=== PATIENT | male | born 1955 | race African-American/Black ===

== ENCOUNTER 2016-09-27 15:38 | Inpatient (IN) | payer MEDICARE, OTHER ==
[~2016-09-27] VITALS: Ht 188 cm; Wt 93.6 kg
[~2016-09-27 15:38] MED LIST: ATOR40TA68 PO; COMBIG5 BOTH EYES; DOXY-220 PO; DULA1.5P SQ; DUTA0.5C PO; FURO40TA4 PO; HYDR-3672 PO; LEVE10006 PO; LOTE5DRO3 BOTH EYES; NASO17 NASAL; NIFE60TA11 PO
[2016-09-27 16:18] LABS: ADD SCAN DIFF NO
[2016-09-27 16:20] LABS: BASOPHILS % 0.5 % (0.0-2.0); EOSINOPHILS # 0.2 10^3/ul (0.0-0.5); EOSINOPHILS % 2.4 % (0.0-7.0); HEMATOCRIT 25.7 % (42.0-52.0); HEMOGLOBIN 8.4 g/dl (14.0-18.0); LYMPHOCYTES # 2.2 10^3/ul (0.8-2.9); LYMPHOCYTES % 27.1 % (15.0-51.0); MEAN CORPUSCULAR HGB CONC 32.7 g/dl (32.0-37.0); MEAN CORPUSCULAR VOLUME 85.7 fl (82.0-101.0); MEAN PLATELET VOLUME 10.8 fl (7.4-10.4); MONOCYTE # 0.8 10^3/ul (0.3-0.9); MONOCYTES % 9.3 % (0.0-11.0); NEUTROPHILS % 60.1 % (39.0-77.0); PLATELET COUNT 274 10^3/UL (140-415); WHITE BLOOD COUNT 8.3 10^3/ul (4.8-10.8)
[2016-09-27 16:34] LABS: CHLORIDE 104 mmol/L (97-110)
[2016-09-27 16:35] LABS: POTASSIUM 4.2 mmol/L (3.5-5.1); SODIUM 141 mmol/L (135-144)
[2016-09-27 16:37] LABS: CREATININE 10.21 mg/dl (0.61-1.24)
[2016-09-27 16:38] LABS: ANION GAP 19 (8-16); BLOOD UREA NITROGEN 88 mg/dl (7-20); CALCIUM 6.5 mg/dl (8.4-10.2); CARBON DIOXIDE 22 mmol/L (21-31); GLUCOSE 107 mg/dl (70-220)
[2016-09-27 16:47] LABS: B-TYPE NATRIURETIC PEPTIDE 3020 PG/ML (0-125)
[2016-09-27 16:54] LABS: TROPONIN-I < 0.012 ng/ml (0.00-0.12)
[2016-09-27] MEDS ORDERED: METO25TA7 PO (17:12)
--- NOTE | 2016-09-27 17:59 | RADRPT ---
PROCEDURE: XR Chest 1 View. CLINICAL INDICATION: Chest pain TECHNIQUE: AP view of the chest was obtained. COMPARISON: May 09, 2016 FINDINGS: The cardiomediastinal silhouette is within normal limits. Subsegmental atelectasis is noted in the b ilateral lower lobes. No consolidations are identified. No pneumothorax is seen. Osseous structure s are intact. IMPRESSION: Subsegmental atelectasis in the bilateral lower lobes. RPTAT: AA .Chris Craven MD, Date Time Electronically viewed and signed by .Chris Craven MD, on 09/27/2016 17:58 .P/
[2016-09-27] MEDS ORDERED: SOD CHLORIDE 0.9% 1,000 ML IV ONE (19:00)
[2016-09-27] MEDS ORDERED: FUROSEMIDE 40 MG INJ IV ONE (20:30)
[2016-09-27] MEDS ORDERED: ACETAMINOPHEN 325 MG TAB PO PRN (20:30)
[2016-09-27] MEDS ORDERED: ONDANSETRON 4 MG INJ IV PRN (20:30)
[2016-09-27] MEDS ORDERED: LABETALOL HCL 20MG INJ IV ONE ×2 (21:00→23:30)
[2016-09-28] VITALS (14 sets, daily range): BP systolic 106–186; BP diastolic 67–110; PULSE 62–84; RESP 18–20; Ht 188 cm; Wt 93.6 kg
--- NOTE | 2016-09-28 00:55 | ERA ---
ER Documentation Chief Complaint Date/Time DATE: 09/28/16 TIME: 00:50 Chief Complaint pt mark anthony from home c/o bi-lateral leg swelling x 6 days, denies pain HPI This 60-year-old male presented emergency room for bilateral leg swelling 6 days. Also states it is feeling a little woozy. Denies any headache or focal neurological deficits. States that his primary care doctor Pato, called him last week and told that his creatinine is elevated he should go into a hospital. He waited till today. Denies any abdominal pain. Denies fever chills. ROS All systems reviewed and are negative except as per history of present illness. Medications Home Meds Active Scripts Furosemide (Lasix) 40 Mg Tab, 40 MG PO DAILY, #30 TAB Prov:JERSEY FARIAS. DO 03/27/16 Nifedipine (Nifedical Xl) 60 Mg Tab.er.24, 60 MG PO 1 by mouth 4 times a, #30 TAB Prov:JERSEY FARIAS. DO 03/27/16 Reported Medications Metoprolol Succinate* (Toprol XL*) 25 Mg Tab.sr.24h, 25 MG PO DAILY, #30 TAB 09/27/16 Atorvastatin* (Atorvastatin*) 40 Mg Tablet, 40 MG PO QHS, #30 TAB 03/27/16 Brimonidine/Timolol* (Combigan*) 5 Ml Drops, 1 DROP BOTH EYES BID, BOTTLE 03/27/16 Doxycycline Monohydrate* (Doxycycline Monohydrate*) 100 Mg Tablet, 100 MG PO DAILY, TAB 03/27/16 Discontinued Reported Medications Mometasone Furoate* (Nasonex*) 50 Mcg/[place]aver[place] - 17 Gm [place].pump, 1 SPRAY NASAL BID, #1 BOTTLE IN EACH NOSTRIL 03/27/16 Dutasteride* (Avodart*) 0.5 Mg Capsule, 0.5 MG PO DAILY, CAP 03/27/16 Dulaglutide (Trulicity) 1.5 Mg/0.5 Ml Pen.injctr, 1.5 MG SQ 03/27/16 Loteprednol Etabonate* (Lotemax*) 5 Ml Drops.susp, 1 DROP BOTH EYES QID, EA 03/27/16 Levetiracetam* (Levetiracetam*) 1,000 Mg Tablet, 1000 MG PO 02/25/13 Discontinued Scripts Hydralazine Hcl* (Hydralazine Hcl*) 50 Mg Tab, 50 MG PO TID, #90 TAB Prov:JERSEY FARIAS DO 03/27/16 Allergies Allergies: Coded Allergies: No Known Allergies (Verified Allergy, Mild, 09/27/16) PMhx/Soc History of Surgery: No Anesthesia Reaction: No Hx Neurological Disorder: No Hx Respiratory Disorders: No Hx Cardiac Disorders: Yes (htn) Hx Psychiatric Problems: No Hx Miscellaneous Medical Probl: No Hx Alcohol Use: No Hx Substance Use: No Hx Tobacco Use: No Smoking Status: Former smoker Physical Exam Vitals Vital Signs Date Time Temp Pulse Resp B/P Pulse Ox O2 Delivery O2 Flow Rate FiO2 09/27/16 20:00 86 18 189/115 100 Room Air 09/27/16 18:59 80 16 161/106 99 Room Air 09/27/16 15:50 98.6 76 16 120/80 100 Physical Exam Const: [] No acute distress Head: Atraumatic Eyes: Normal Conjunctiva ENT: Normal External Ears, Nose and Mouth. Neck: Full range of motion..~ No meningismus. Resp: Clear to auscultation bilaterally Cardio: Regular rate and rhythm, no murmurs Abd: Soft, non tender, non distended. Normal bowel sounds Skin: No petechiae or rashes Back: No midline or flank tenderness Ext: No cyanosis, bilateral 2+ pitting tibial edema. The pulses intact all 4 extremities Neur: Awake and alert Psych: Normal Mood and Affect Result Diagram: 09/27/16 1600 09/27/16 1600 Results 24 hrs Laboratory Tests Test 09/27/16 16:00 White Blood Count 8.310^3/ul Red Blood Count 3.0010^6/ul Hemoglobin 8.4g/dl Hematocrit 25.7% Mean Corpuscular Volume 85.7fl Mean Corpuscular Hemoglobin 28.0pg Mean Corpuscular Hemoglobin Concent 32.7g/dl Red Cell Distribution Width 14.0% Platelet Count 25233^3/UL Mean Platelet Volume 10.8fl Neutrophils % 60.1% Lymphocytes % 27.1% Monocytes % 9.3% Eosinophils % 2.4% Basophils % 0.5% Nucleated Red Blood Cells % 0.0/100WBC Neutrophils # 5.010^3/ul Lymphocytes # 2.210^3/ul Monocytes # 0.810^3/ul Eosinophils # 0.210^3/ul Basophils # 0.010^3/ul Nucleated Red Blood Cells # 0.010^3/ul Sodium Level 141mmol/L Potassium Level 4.2mmol/L Chloride Level 104mmol/L Carbon Dioxide Level 22mmol/L Anion Gap 19 Blood Urea Nitrogen 88mg/dl Creatinine 10.21mg/dl Glucose Level 107mg/dl Calcium Level 6.5mg/dl Troponin I < 0.012ng/ml B-Type Natriuretic Peptide 3020PG/ML Current Medications Medications (Trade) Dose Ordered Sig/Florencia Route PRN Reason Start Time Stop Time Status Last Admin Dose Admin Sodium Chloride (NS) 1,000 ml @ 1,000 mls/hr Q1H ONCE IV 09/27/16 19:00 09/27/16 19:59 DC 09/27/16 18:52 Procedures/MDM Patient with a significantly increasing renal failure. She is not on dialysis yet but has labs consistent with needing dialysis. His high BUN of 88 indicating uremia explains his slightly woozy feeling that he could not quite described. Spoke with Dr. Angela Claudio who will be admitting the patient. Marian spoke with the partner of Dr. Casey Ho will be seeing the patient for nephrology. Review the patient's record on his previous admission for renal failure he had seen Dr. Casey. No need for emergent dialysis right now. They give the patient a liter of normal saline to help with his kidney function. Did not want to give her Lasix right now for his leg swelling. Patient also has normocytic anemia without any history of GI bleeding currently. Likely secondary to decreased erythropoietin secondary to kidney failure. Had an increased BNP of 3000 indicating probable fluid overload secondary to the kidneys. No chest pain and no ischemic changes on his EKG. EKG interpretation: Sinus origin of rhythm with normal axis, no significantly prolonged QT interval, no ST or T-wave changes concerning for acute ischemia. 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
[2016-09-28] MEDS ORDERED: ACETAMINOPHEN 500 MG TAB PO PRN (01:00)
--- NOTE | 2016-09-28 05:10 | CONS ---
DATE OF ADMISSION: 09/27/2016 DATE OF CONSULTATION: 09/27/2016 NEPHROLOGY CONSULTATION PRIMARY PHYSICIAN: Dr. Whyte REASON FOR CONSULTATION: Progression of chronic kidney disease. HISTORY OF PRESENT ILLNESS: This is a 60-year-old gentleman with a known history of hypertension an d hyperlipidemia who, from old records, states that as well he has a longstanding history of diabete s mellitus (the patient currently denies any history of diabetes) who has had known chronic kidney d isease. He was admitted to [facility] in April of last year when he presented with bilateral lower extremity willis ma. At that time, on admission on 05/09/2016, creatinine was 5.73. Hemoglobin was 10.4, and urinal ysis disclosed 2+ protein with an otherwise bland sediment. A venous Doppler was negative for any DVT at that time, and renal ultrasound showed diffusely increa sed renal cortical echogenicity consistent with chronic kidney disease. There were no masses, calcu li, or evidence of any obstruction. There was no hydronephrosis. He was diuresed and discharged on 05/13/2016 with a serum creatinine of 5.4. He has since followed up with Dr. Whyte and apparently earlier this week had laboratories done w [facility] showed a creatinine of approximately 9. According to the patient, it was recommended that he be admitted, but he did not do so until he pres ented to the ER this evening complaining of generalized weakness and fatigue with progression of his lower extremity edema despite outpatient Lasix 40 mg a day. He denies any history of any cardiopulmonary disease, specifically denies any chest pain, angina, sy ncope, presyncope, or any palpitations. He denies any history of prior chest pain, MN, or TIA. He does have hypertension, and he admits to taking his medications religiously. Here in the emergency room, most recent blood pressure is 160/106, O2 saturation is 99% on room air, and he is comfortable lying in bed. LABORATORY: Notable for hemoglobin of 8.4, BUN of 88, and creatinine of 10.2 with a calcium of 6.5. PAST MEDICAL HISTORY: Please see full dictated problem list. ALLERGIES: NONE. HABITS: Tobacco: He currently denies. Alcohol: He currently denies; albeit from prior records, lobo jj apparently was an alcohol user years ago. MEDICATIONS: He takes include 1. Atorvastatin 40 mg a day. 2. Hydralazine 100 mg twice a day. 3. Lasix 40 mg a day. 4. Metoprolol 25 mg daily. REVIEW OF SYSTEMS: As per HPI. Otherwise unremarkable. PHYSICAL EXAMINATION: GENERAL: Awake and alert, pleasant gentleman, sitting in bed in no acute distress. VITAL SIGNS: He is afebrile, blood pressure 160/106, heart rate is 72 and regular, respirations are 12 and unlabored, O2 saturation is 99% on room air. SKIN: Warm, well perfused. HEAD: Normocephalic, atraumatic. EYES: Pupils appear round and reactive. Extraocular movements are intact. Sclerae are anicteric. 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 Lungs are clear to auscultation and percussion. NECK: JVP is not distended. There is no adenopathy. BACK: No CVAT. HEART: S1, S2, regular rate and rhythm. No murmurs, rubs, or gallops. ABDOMEN: Somewhat obese and soft, nontender, no organomegaly, no masses. EXTREMITIES: 1+ pitting edema bilaterally. Distal pulses are trace. LABORATORY DATA: White count 8.3, hemoglobin 8.4, hematocrit 25.7, platelet count 274,000. Sodium 141, potassium 4.2, chloride 104, bicarbonate 22, BUN 88, creatinine 10.21, glucose 107, calcium 6.5 . Troponin less than 0.012. Electrocardiogram shows normal sinus rhythm with some nonspecific ST-T wave changes. Chest x-ray: Normal size heart. No infiltrates or effusions. PROBLEM LIST: 1. Progressive chronic kidney disease, currently reaching end-stage, most likely due to combination of hypertensive nephrosclerosis and diabetic nephropathy (albeit the patient currently denies a his tory of diabetes.) 2. Hypertension, currently poorly controlled. 3. Lower extremity edema secondary to progressive kidney disease. 4. Anemia of chronic kidney disease, iron status unknown. 5. History of diabetes, currently diet controlled and off medication. 6. Prior history of bipolar disorder. 7. History of bilateral mastectomies due to gynecomastia from prior Risperdal treatment. 8. Hyperlipidemia, currently on atorvastatin. RECOMMENDATIONS: The nature of his progressive chronic kidney disease was discussed with the patien t and that his fatigue and lethargy is due to the combination of both kidney disease and the resulta nt anemia of chronic kidney disease. The issue of hemodialysis was discussed at length with the pat david at the bedside. He appears to understand but is not willing, at this point, to undergo acute d ialysis. The nature of creating AV fistula was explained to the patient, and he seemed open to that . RECOMMENDATIONS: 1. Admit to hospital. 2. Obtain iron stores and begin on Procrit. 3. Vascular surgery consultation. We will discuss with Dr. Whyte. 4. Followup labs in the morning. 5. Careful diuresis. 6. Obtain renal ultrasound for completeness, albeit I doubt he is obstructed. 7. Further recommendations pending response to above. Dictated By: BRIAN STVEENSON MD, MM/MONTSERRAT Conf#: [id number] DID#: [id number]
[2016-09-28 08:52] LABS: ADD UMIC YES; URINE BILIRUBIN (Dip) NEGATIVE (NEGATIVE); URINE BLOOD (Dip) 1+ (NEGATIVE); URINE COLOR LT. YELLOW (YELLOW); URINE KETONES (Dip) NEGATIVE (NEGATIVE); URINE LEUKOCYTE ESTERASE (Dip) NEGATIVE (NEGATIVE); URINE NITRITE (Dip) NEGATIVE (NEGATIVE); URINE TOTAL PROTEIN (Dip) 2+ (NEGATIVE); URINE UROBILINOGEN (Dip) 0.2 E.U./dL (0.1-1.0)
[2016-09-28] MEDS ORDERED: METOPROLOL 25 MG TAB PO SCH ×2 (09:00)
[2016-09-28] MEDS ORDERED: NIFEdipine 10 MG CAP PO SCH (09:00)
[2016-09-28 09:17] LABS: URINE RBCS 0-2 /HPF (0)
[2016-09-28] MEDS: NIFEdipine (XL) 60 MG TAB PO SCH (09:30)
--- NOTE | 2016-09-28 09:53 | CONS ---
Date/Time of Note Date/Time of Note DATE: 09/28/16 TIME: 09:49 Assessment/Plan Assessment/Plan Problems: (1) CKD stage 5 secondary to hypertension Comment: discussed.. he agreeable to start HD... will need to discuss w Dr Whyte on choice of Vascular Surgeon for placement of Permacath, and creation of AVF (2) HTN (hypertension) Comment: will increase meds now (3) Anemia in chronic kidney disease Comment: Fe studies pd.. will start EPO (4) Cardiomyopathy Comment: Echo ordered... currently pd Consultation Date/Type/Reason Admit Date/Time Sep 27, 2016 at 20:14 Initial Consult Date Type of Consultation: neph 24 HR Interval Summary Free Text/Dictation feels OK... thought about our discussion last night, and is now agreeable to starting dialysis... currently no cp or sob...again reviewed anemia, etc Exam/Review of Systems Vital Signs Vitals Vital Signs Date Time Temp Pulse Resp B/P Pulse Ox O2 Delivery O2 Flow Rate FiO2 09/28/16 08:21 98.2 78 18 171/95 99 09/28/16 00:04 Room Air Intake and Output 09/27/16 09/27/16 09/28/16 15:00 23:00 07:00 Intake Total 400 ml Balance 400 ml Exam Constitutional: alert Psych: no complaints Eyes: nl conjunctiva Neck: supple Respiratory: clear to auscultation Cardiovascular: regular rate and rhythm Gastrointestinal: soft Extremities: edema (1+) Results Result Diagram: 09/27/16 1600 09/27/16 1600 Results 24 hrs Laboratory Tests Test 09/27/16 16:00 09/28/16 05:00 White Blood Count 8.3 Red Blood Count 3.00 #L Hemoglobin 8.4 #L Hematocrit 25.7 L Mean Corpuscular Volume 85.7 Mean Corpuscular Hemoglobin 28.0 L Mean Corpuscular Hemoglobin Concent 32.7 Red Cell Distribution Width 14.0 Platelet Count 274 Mean Platelet Volume 10.8 #H Neutrophils % 60.1 Lymphocytes % 27.1 Monocytes % 9.3 Eosinophils % 2.4 Basophils % 0.5 Nucleated Red Blood Cells % 0.0 Neutrophils # 5.0 Lymphocytes # 2.2 Monocytes # 0.8 Eosinophils # 0.2 Basophils # 0.0 Nucleated Red Blood Cells # 0.0 Sodium Level 141 Potassium Level 4.2 Chloride Level 104 Carbon Dioxide Level 22 Anion Gap 19 H Blood Urea Nitrogen 88 H Creatinine 10.21 H Glucose Level 107 Calcium Level 6.5 L Troponin I < 0.012 B-Type Natriuretic Peptide 3020 H Urine Color LT. YELLOW Urine Clarity CLEAR Urine pH 7.0 Urine Specific [place] 1.020 Urine Ketones NEGATIVE Urine Nitrite NEGATIVE Urine Bilirubin NEGATIVE Urine Urobilinogen 0.2 E.U./dL Urine Leukocyte Esterase NEGATIVE Urine Microscopic RBC 0-2 Urine Microscopic WBC NONE SEEN Urine Hemoglobin 1+ H Urine Glucose 0.1% H Urine Total Protein 2+ H Medications Medications Current Medications Acetaminophen (Tylenol Tab) 500 mg Q6H PRN PO PAIN AND OR ELEVATED TEMP; Start 09/28/16 at 01:00 Clonidine (Catapres) 0.1 mg Q8 PRN PO ELEVATED BLOOD PRESSURE Last administered on 09/28/16 03:56; Admin Dose 0.1 MG; Start 09/28/16 at 01:00 Atorvastatin Calcium (Lipitor) 40 mg HS PO ; Start 09/28/16 at 21:00 Hydralazine HCl (Apresoline) 100 mg BID PO Last administered on 09/28/16 09:30 ; Admin Dose 100 MG; Start 09/28/16 at 09:00 Nifedipine (Procardia Xl) 60 mg DAILY PO Last administered on 09/28/16 09:30; Admin Dose 60 MG; Start 09/28/16 at 09:00 Metoprolol Tartrate (Lopressor) 50 mg DAILY PO ; Start 09/29/16 at 09:00; Status UNV BRIAN STEVENSON MD Sep 28, 2016 09:53
[2016-09-28 10:01] LABS: ADD SCAN DIFF NO
[2016-09-28 10:05] LABS: BASOPHILS % 0.4 % (0.0-2.0); EOSINOPHILS # 0.2 10^3/ul (0.0-0.5); EOSINOPHILS % 2.7 % (0.0-7.0); LYMPHOCYTES # 1.9 10^3/ul (0.8-2.9); LYMPHOCYTES % 27.5 % (15.0-51.0); MEAN CORPUSCULAR HEMOGLOBIN 27.2 pg (29.0-33.0); MEAN CORPUSCULAR HGB CONC 31.8 g/dl (32.0-37.0); MEAN CORPUSCULAR VOLUME 85.6 fl (82.0-101.0); MEAN PLATELET VOLUME 10.7 fl (7.4-10.4); MONOCYTE # 0.6 10^3/ul (0.3-0.9); MONOCYTES % 8.7 % (0.0-11.0); NEUTROPHIL # 4.1 10^3/ul (1.6-7.5); NEUTROPHILS % 60.4 % (39.0-77.0); PLATELET COUNT 221 10^3/UL (140-415); RED BLOOD COUNT 2.57 10^6/ul (4.70-6.10); RED CELL DISTRIBUTION WIDTH 14.1 % (11.5-14.5); WHITE BLOOD COUNT 6.8 10^3/ul (4.8-10.8)
[2016-09-28 10:18] LABS: ALBUMIN 2.7 g/dl (3.3-4.9); ALBUMIN/GLOBULIN RATIO 0.84; CREATININE 9.38 mg/dl (0.61-1.24); PHOSPHORUS 8.8 mg/dl (2.5-4.9); POTASSIUM 3.6 mmol/L (3.5-5.1); TOTAL PROTEIN 5.9 g/dl (6.1-8.1)
[2016-09-28] MEDS ORDERED: EPOETIN 10000 UNITS/ML (NON ESRD/NON ONCOLOGY) SC ONE (10:30)
--- NOTE | 2016-09-28 11:19 | RADRPT ---
Echocardiogram Report Patient Name: VICKY REYES Gender: Male Date: 1955 Study Date: 28-Sep-2016 Steersman: MATILDE Location: E Ref. Physician: BRIAN STEVENSON Quality: Adequate Procedures: Transthoracic echocardiogram with complete 2D, M-Mode, and Doppler examination. Indications: Shortness of breath. 2D/M Mode Doppler Measurement Value Normal Ranges Measurement Value Normal Ranges AoR Diam MM 3.4 cm AV Peak Ignacio 1.5 m/sec ACS MM 2.2 cm AV Peak PG 8.8 mmHg LVIDd 2D 4.9 3.5 - 5.6 cm LVOT Peak Ignacio 1.0 m/sec LVIDs 2D 3.1 2.1 - 4.1 cm LVOT Peak PG 3.8 mmHg LVPWd 2D 1.6 0.6 - 1.1 cm MV E Peak Ignacio 0.9 m/sec IVSd 2D 1.5 0.6 - 1.1 cm MV A Peak Ignacio 0.7 m/sec EDV 2D 111.2 cm3 MV E/A 1.2 ESV 2D 30.6 cm3 MV Decel Time 144 msec LA Dimen 2D 4.2 2.3 - 4.0 cm MV Decel [place] 6 MV E/A 1.2 TR Peak Ignacio 2.7 m/sec TR Peak PG 29.8 mmHg PV Peak Ignacio 1.1 m/sec PV Peak PG 4.0 mmHg RVSP 32.8 mmHg Findings Left Ventricle: Normal left ventricular systolic function. Normal left ventricular cavity size. Moderate concentric left ventricular hypertrophy. Ejection fraction is visually estimated at 65 %. Tissue Doppler/Mitral Doppler indices are consistent with impaired relaxation (Stage I diastolic dysfunction). E/E`=14. Right Ventricle: Normal right ventricular size. Normal right ventricular systolic function. Left Atrium: There is mild enlargement of left atrium. Right Atrium: The right atrium is normal in size. Atrial Septum: Normal atrial septum. Mitral Valve: Normal appearance of the mitral valve. Trace to mild mitral valve regurgitation. Aortic Valve: Normal trileaflet aortic valve structure. Trace aortic valve regurgitation. Tricuspid Valve: Normal appearance of the tricuspid valve. Estimated peak PA systolic pressure 33 mmHg. There is trace to mild tricuspid regurgitation. Pulmonic Valve: Normal pulmonic valve appearance. There is trace pulmonic regurgitation. Pericardium: Normal pericardium with no significant pericardial effusion. Aorta: Normal aortic root. IVC: Normal size and normal respiratory collapse consistent with normal right atrial pressure. Pulmonary Artery: Normal pulmonary artery size. Conclusions 1.Normal left ventricular systolic function. Normal left ventricular cavity size. Moderate concentric left ventricular hypertrophy. Ejection fraction is visually estimated at 65 %. Tissue Doppler/Mitral Doppler indices are consistent with impaired relaxation (Stage I diastolic dysfunction). E/E`=14. 2.There is mild enlargement of left atrium. 3.The right atrium is normal in size. 4.Normal atrial septum. 5.Normal appearance of the mitral valve. Trace to mild mitral valve regurgitation. 6.Normal appearance of the tricuspid valve. Estimated peak PA systolic pressure 33 mmHg. There is trace to mild tricuspid regurgitation. 7.Normal pulmonic valve appearance. There is trace pulmonic regurgitation. 8.Normal pericardium with no significant pericardial effusion. Electronically Signed By: Jasmin Go 28-Sep-2016 11:18:37 -0700 Patient Name: VICKY REYES Study Date: 28-Sep-2016 [id number]
--- NOTE | 2016-09-28 11:25 | RADRPT ---
PROCEDURE: Renal US. CLINICAL INDICATION: Acute renal failure. TECHNIQUE: Multiple sonographic images of the kidneys and urinary bladder were obtained. The imag es were reviewed on a PACS workstation. COMPARISON: 05/10/2016. FINDINGS: The right kidney measures 11.3 x 4.7 x 6.2 cm. The left kidney measures 10.1 x 4.7 x 4.7 cm. There is no solid renal mass. There are benign bilateral renal cysts with the largest on the right measuring 1.6 cm and the largest on the left measuring 2.4 cm There is mild bilateral hydronephrosis with no obstructing lesion visualized. There is no renal calculus. Renal parenchymal thickness is normal bilaterally. Both kidneys are hyperechoic consistent with medical renal disease. The perirenal regions are normal with no fluid collection or mass. The urinary bladder is distended but otherwise unremarkable with no mass or calculus. IMPRESSION: 1. Benign bilateral renal cysts. 2. Mild bilateral hydronephrosis. 3. Bilateral hyperechoic kidneys consistent with medical renal disease. 4. Distended urinary bladder. 5. Otherwise unremarkable study. RPTAT: QQ .Gerson Neal MD, Date Time Electronically viewed and signed by .Gerson Neal MD, on 09/28/2016 11:25 .R/
[2016-09-28 11:26] LABS: IRON 47 ug/dl (35-150); TOTAL IRON BINDING CAPACITY 240 ug/dl (241-421)
[2016-09-28 11:36] LABS: FOLATE 10.1 ng/ml (2.8-20.0)
--- NOTE | 2016-09-28 18:28 | HP ---
DATE OF ADMISSION: 09/27/2016 CHIEF COMPLAINT: Increasing creatinine and leg swelling. HISTORY OF PRESENT ILLNESS: The patient is a 60-year-old male with a history of ch ronic renal insufficiency on the basis of hypertension and diabetes, who has had an elevated creatin ine and recommendations to consider dialysis in the past. The patient had refused. The patient has had an increase in creatinine. Last week, creatinine up to 9. Patient, at that time, refused hosp italization, but patient, after further consideration and increasing lower extremity edema, presente d to ER last night. Patient noted to have a creatinine of 10. Patient also had some lower extremit y edema. Denied any chest pain, shortness of breath, dizziness. No fever, chills or night sweats. No recent illnesses. The patient was given some IV Lasix and admitted for further management. PAST MEDICAL HISTORY: Chronic renal insufficiency, hypertension, hyperlipidemia, history of diabete s, BPH, bipolar disorder, schizophrenia, acne, rosacea, nasal allergies and anemia. OPERATIONS: Breast reduction for gynecomastia. MEDICATIONS: 1. Lopressor 25 mg daily. 2. Nifedipine 60 mg daily. 3. Dutasteride 0.5 mg daily. 4. Hydralazine 100 mg b.i.d. 5. Lasix 40 mg p.o. daily. 6. Mometasone nasal spray. 7. Lipitor 40 mg daily. ALLERGIES: PATIENT HAS NO KNOWN DRUG ALLERGIES. SOCIAL HISTORY: The patient has not smoked in over 25 years, prior 9-pack-year history. Denies any significant alcohol use in the past. No current alcohol consumption. 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 FAMILY HISTORY: The patient's father at 50 from alcoholism. Mother is alive and well. Anyi brooks has 3 brothers alive and well, 3 sisters, 2 of which have diabetes, the other alive and well. REVIEW OF SYSTEMS: GENERAL: The patient denies any fever, chills, night sweats or other general complaints. HEENT: The patient denies any headache, congestion, rhinorrhea, sore throat or other HEENT complain ts. RESPIRATORY: The patient denies any cough, wheeze, shortness of breath or other respiratory complai nts. CARDIOVASCULAR: The patient denies any chest pains, palpitations, dizziness or other cardiovascular symptoms except for lower extremity edema. GASTROINTESTINAL: The patient denies any abdominal pain, nausea, vomiting, bright red blood per rec amy, melena or other GI symptoms. GENITOURINARY: The patient denies any dysuria, frequency or other symptoms. NEUROLOGIC: The patient denies any numbness, tingling, weakness or other focal neurologic symptoms. PHYSICAL EXAMINATION: VITAL SIGNS: Temperature 97.8, pulse 79, blood pressure 186/110, pulse ox 98%. GENERAL APPEARANCE: This is a well-developed, well-nourished male, no acute distre ss. He appears nontoxic. HEENT: Normocephalic, atraumatic. Pupils equal, round, reactive to light. Extraocular movements i ntact. Oropharynx is clear. NECK: Supple. No adenopathy. No bruits. LUNGS: Clear to auscultation. CARDIAC: Regular rate and rhythm. ABDOMEN: Bowel sounds are present. Abdomen is soft, nontender, nondistended. EXTREMITIES: Without cyanosis or clubbing. There is mild edema bilaterally. NEUROLOGICAL: The patient is alert and oriented x3 with no focal neurologic findings. DATA: EKG is sinus rhythm at 76, nonspecific T-wave changes and no hyperacute changes. On admissio n, white cells 8.3, hemoglobin 8.4, platelets are 274. Sodium 141, potassium 4.2, chloride 104, bic arbonate 22, BUN 88, creatinine 10.21, glucose 107. Troponin less than 0.012. BNP 3020. Chest x-r ay showed subsegmental atelectasis, no acute infiltrates. IMPRESSION: 1. Progressive chronic renal failure. Creatinine increased to 10. 2. Hypertension. 3. Lower extremity edema. 4. Anemia. 5. History of diabetes. 6. Hyperlipidemia. PLAN: Admit to med/surg. Renal consultation appreciated. Renal ultrasound, blood pressure control , medication adjustment, monitor labs. The patient now agreeable to dialysis, arrangements as per judy ennacho. Dictated By: TAMMY SAN/MONTSERRAT Conf#: [id number] DID#: [id number]
[2016-09-28] MEDS: CALCIUM CARBONATE 750 MG CHEW TAB PO SCH (18:58)
[2016-09-28] MEDS: ATORVASTATIN 40 MG TAB PO SCH (20:26)
[2016-09-29] VITALS (22 sets, daily range): BP systolic 116–189; BP diastolic 72–108; PULSE 68–80; RESP 17–20
[2016-09-29 07:33] LABS: ADD SCAN DIFF NO
[2016-09-29 07:35] LABS: BASOPHILS % 0.5 % (0.0-2.0); EOSINOPHILS # 0.2 10^3/ul (0.0-0.5); EOSINOPHILS % 2.9 % (0.0-7.0); HEMOGLOBIN 7.7 g/dl (14.0-18.0); LYMPHOCYTES # 2.2 10^3/ul (0.8-2.9); LYMPHOCYTES % 28.6 % (15.0-51.0); MEAN CORPUSCULAR HEMOGLOBIN 27.7 pg (29.0-33.0); MEAN CORPUSCULAR HGB CONC 32.1 g/dl (32.0-37.0); MEAN CORPUSCULAR VOLUME 86.3 fl (82.0-101.0); MEAN PLATELET VOLUME 10.6 fl (7.4-10.4); MONOCYTE # 0.7 10^3/ul (0.3-0.9); MONOCYTES % 9.6 % (0.0-11.0); NEUTROPHIL # 4.4 10^3/ul (1.6-7.5); PLATELET COUNT 231 10^3/UL (140-415); RED BLOOD COUNT 2.78 10^6/ul (4.70-6.10); WHITE BLOOD COUNT 7.6 10^3/ul (4.8-10.8)
[2016-09-29 07:50] LABS: INR 0.95; PROTIME 12.7 Sec (12.2-14.2)
[2016-09-29 07:56] LABS: POTASSIUM 3.8 mmol/L (3.5-5.1)
[2016-09-29 07:59] LABS: CALCIUM 6.7 mg/dl (8.4-10.2); CREATININE 9.9 mg/dl (0.61-1.24)
[2016-09-29] MEDS: NIFEdipine (XL) 60 MG TAB PO SCH ×3 (07:59→21:03)
[2016-09-29] MEDS: CALCIUM CARBONATE 750 MG CHEW TAB PO SCH ×3 (08:02→21:03)
--- NOTE | 2016-09-29 08:11 | CONS ---
Date/Time of Note Date/Time of Note DATE: 09/29/16 TIME: 08:09 Assessment/Plan Assessment/Plan Problems: (1) Anemia in chronic kidney disease Comment: on EPO... will also give Ferrlecit now (2) CKD stage 5 secondary to hypertension Comment: have asked dr Gonzalez to see, for Permacath and creation of AVF (3) HTN (hypertension) Comment: med adjustments underway Consultation Date/Type/Reason Admit Date/Time Sep 27, 2016 at 20:14 Type of Consultation: neph 24 HR Interval Summary Free Text/Dictation OK...stable but weak... again discussed dialysis an he agreeable Exam/Review of Systems Vital Signs Vitals Vital Signs Date Time Temp Pulse Resp B/P Pulse Ox O2 Delivery O2 Flow Rate FiO2 09/29/16 07:44 98.0 76 18 189/108 97 09/28/16 00:04 Room Air Intake and Output 09/28/16 09/28/16 09/29/16 15:00 23:00 07:00 Intake Total 1080 ml 500 ml Output Total 1800 ml 2100 ml Balance -720 ml -1600 ml Exam Constitutional: alert, oriented Neck: supple Cardiovascular: regular rate and rhythm Gastrointestinal: soft Extremities: edema (none), normal pulses Results Result Diagram: 09/29/16 0645 09/29/16 0645 Results 24 hrs Laboratory Tests Test 09/28/16 09:20 09/28/16 09:24 09/29/16 06:45 White Blood Count 6.8 7.6 Red Blood Count 2.57 L 2.78 L Hemoglobin 7.0 L 7.7 L Hematocrit 22.0 L 24.0 L Mean Corpuscular Volume 85.6 86.3 Mean Corpuscular Hemoglobin 27.2 L 27.7 L Mean Corpuscular Hemoglobin Concent 31.8 L 32.1 Red Cell Distribution Width 14.1 14.0 Platelet Count 221 231 Mean Platelet Volume 10.7 H 10.6 H Neutrophils % 60.4 58.0 Lymphocytes % 27.5 28.6 Monocytes % 8.7 9.6 Eosinophils % 2.7 2.9 Basophils % 0.4 0.5 Nucleated Red Blood Cells % 0.0 0.0 Neutrophils # 4.1 4.4 Lymphocytes # 1.9 2.2 Monocytes # 0.6 0.7 Eosinophils # 0.2 0.2 Basophils # 0.0 0.0 Nucleated Red Blood Cells # 0.0 0.0 Sodium Level 137 139 Potassium Level 3.6 3.8 Chloride Level 106 103 Carbon Dioxide Level 22 23 Anion Gap 13 17 H Blood Urea Nitrogen 81 H 82 H Creatinine 9.38 H 9.90 H Glucose Level 176 105 # Calcium Level 6.0 L 6.7 L Phosphorus Level 8.8 H Iron Level 47 Total Iron Binding Capacity 240 L Percent Iron Saturation 20 L Ferritin 91.0 Total Bilirubin 0.0 L Direct Bilirubin 0.00 Indirect Bilirubin 0.0 Aspartate Amino Transf (AST/SGOT) 49 H Alanine Aminotransferase (ALT/SGPT) 43 Alkaline Phosphatase 70 Total Protein 5.9 L Albumin 2.7 L Globulin 3.20 Albumin/Globulin Ratio 0.84 Vitamin B12 Level 396 Folate 10.1 Parathyroid Hormone (Intact) Prothrombin Time 12.7 Prothrombin Time Ratio 1.0 INR International Normalized Ratio 0.95 Hemoglobin A1c 6.3 H Medications Medications Current Medications Acetaminophen (Tylenol Tab) 500 mg Q6H PRN PO PAIN AND OR ELEVATED TEMP; Start 09/28/16 at 01:00 Clonidine (Catapres) 0.1 mg Q8 PRN PO ELEVATED BLOOD PRESSURE Last administered on 09/29/16 08:02; Admin Dose 0.1 MG; Start 09/28/16 at 01:00 Atorvastatin Calcium (Lipitor) 40 mg HS PO Last administered on 09/28/16 20:26 ; Admin Dose 40 MG; Start 09/28/16 at 21:00 Hydralazine HCl (Apresoline) 100 mg BID PO Last administered on 09/29/16 08:01 ; Admin Dose 100 MG; Start 09/28/16 at 09:00 Nifedipine (Procardia Xl) 60 mg DAILY PO Last administered on 09/29/16 07:59; Admin Dose 60 MG; Start 09/28/16 at 09:00 Metoprolol Tartrate (Lopressor) 50 mg DAILY PO ; Start 09/29/16 at 08:00 BRIAN STEVENSON MD Sep 29, 2016 08:11
[2016-09-29] MEDS: METOPROLOL 50 MG TAB PO SCH (08:22)
[2016-09-29] MEDS ORDERED: METOPROLOL 50 MG TAB PO SCH (09:00)
--- NOTE | 2016-09-29 09:23 | HP ---
DATE OF ADMISSION: 09/27/2016 TYPE OF CONSULTATION: Vascular surgery consultation. Dear Doctors: Mr. Dumont is a 60-year-old gentleman known to our vascular surgery service group for chronic kidne y disease stage V, with impending end-stage renal disease, whom has presented with acute on chronic renal failure. We have discussed with the patient in the past that he would eventually require dial ysis, and it seems that during this hospitalization the patient has agreed to proceed. Upon our dis cussion with the patient, he denies shortness of breath, chest pain, nausea, vomiting, fever or chi lls. He denies upper extremity claudication and rest pain-like symptoms. He does have edema in his upper and lower extremities. PAST MEDICAL HISTORY: Entails chronic kidney disease stage V, hypertension, hyperlipidemia, coronar y artery disease, diabetes, BPH, bipolar, schizophrenia, acne, rosacea, nasal Allergies, and anemia. PAST SURGICAL HISTORY: Breast reduction for gynecomastia. ALLERGIES: NO KNOWN DRUG ALLERGIES. SOCIAL HISTORY: Patient was a previous smoker. Denies current alcohol, tobacco, or illicit drug us e. FAMILY HISTORY: Positive for alcoholism from his father's side and hypertension. PHYSICAL EXAMINATION: GENERAL: Alert and oriented x3, no apparent distress. HEENT: Normocephalic, atraumatic. EOMI. Mucosa moist. NECK: Supple. No carotid bruit. PULMONARY: Clear to auscultation bilaterally. No crackles. CARDIOVASCULAR: S1, S2 present. No murmurs. ABDOMEN: Soft, nontender, nondistended. Bowel sounds positive. EXTREMITIES: Lower extremities: Palpable femoral pulse, nonpalpable pedal pulse. Motor and sensor y intact. Capillary refill 3 seconds. Edema 2+. Upper extremities: Palpable brachial pulse. Mot or and sensory intact. Cap refill 2 seconds. Edema, mild. ASSESSMENT AND PLAN: Chronic kidney disease stage V, impending end-stage renal disease: It seems t he patient's renal function has worsened, and him requiring dialysis. We will schedule the patient for creation of a new AV fistula and perm-catheter during the time that it will take the fistula to mature. We will obtain bilateral upper extremity vein mapping and arterial studies. Discussed findings, plan, and management with the patient, and he understands and has agreed to proc eed. Optimize vascular status (BP meds, diet, nutrition, exercise, sugar control, antiplatelets). We will plan to have cardiology evaluation for the patient's cardiac status and clearance. Thank you for allowing us to partake in the care of your patient. Please call with any questions. Dictated By: RONNIE JORDAN/MONTSERRAT Conf#: [id number] DID#: [id number]
--- NOTE | 2016-09-29 09:47 | RADRPT ---
PROCEDURE: US bilateral upper extremity Venous. CLINICAL INDICATION: Renal failure, vein mapping TECHNIQUE: Multiple sonographic images of the bilateral upper lower extremity deep an superficial venous system was obtained utilizing grayscale, color-flow, compressive sonography and doppler imagi ng with augmentation. Measurements were performed. The images were reviewed on a PACS workstation. COMPARISON: None. FINDINGS: The bilateral subclavian, axillary and brachial veins are patent. The bilateral cephalic and basili c veins are also patent. RIGHT Right basilic vein size: Proximal: 6.2 mm Mid aspect: 3.7 mm Distal: 2.9 mm Right basilic vein size in the forearm: Proximal: 2.8 mm Mid aspect: 2.2 mm Distal: 1.8 mm Right cephalic vein size: Proximal: 2.5 mm Mid aspect: 1.8 mm Distal: 2.3 mm Right cephalic vein size in the forearm: Proximal: 2.8 mm Mid aspect: 3.5 mm Distal: 1.7 mm LEFT Left basilic vein size: Proximal: 6.9 mm Mid aspect: 3.4 mm Distal: 3.7 mm Left basilic vein size in the forearm: Proximal: 2.0 mm Mid aspect: 2.9 mm Distal: 2.6 mm Left cephalic vein size: Proximal: 2.7 mm Mid aspect: 1.6 mm Distal: 2.2 mm Left cephalic vein size in the forearm: Proximal: 2.6 mm Mid aspect: 3.5 mm Distal: 2.2 mm IMPRESSION: Vein mapping as described. RPTAT: AA .Gomez Mccracken MD, Date Time Electronically viewed and signed by .Gomez Mccracken MD, MD on 09/29/2016 09:47 .S/
--- NOTE | 2016-09-29 09:49 | RADRPT ---
PROCEDURE: US upper extremity arterial. CLINICAL INDICATION: Pain, renal failure TECHNIQUE: Multiple sonographic images of the bilateral upper extremity arteries was obtained util izing grayscale, color-flow, compressive sonography and doppler imaging. The images were reviewed o n a PACS workstation. COMPARISON: None. FINDINGS: Velocities and waveforms were obtained as described below. Right arm Right subclavian artery: 90 cm/s; triphasic waveforms Right axillary artery: 93 cm/s; triphasic waveforms Right brachial artery: 112 cm/s; triphasic waveforms Right radial artery: 70 cm/s; triphasic waveforms Right ulnar artery: 55 cm/s; triphasic waveforms Left arm Left subclavian artery: 89 cm/s; triphasic waveforms Left axillary artery: 97 cm/s; triphasic waveforms Left brachial artery: 95 cm/s; triphasic waveforms Left radial artery: 78 cm/s; triphasic waveforms Left ulnar artery: 71 cm/s; triphasic waveforms IMPRESSION: Unremarkable bilateral upper extremity arterial Doppler ultrasound. RPTAT: AA .Gomez Mccracken MD, Date Time Electronically viewed and signed by .Gomez Mccracken MD, on 09/29/2016 09:49 .S/
[2016-09-29] MEDS: SOD FERRIC GLUC COMPLX 125 MG in SOD CHLORIDE 0.9% 100 ML IVPB SCH (11:50)
[2016-09-29] MEDS ORDERED: MIDAZOLAM 1 MG/ML 2 ML INJ ONE (13:33)
[2016-09-29] MEDS ORDERED: LIDOCAINE 1% (MDV) 20 ML INJ ONE (13:33)
[2016-09-29] MEDS ORDERED: SOD CHLORIDE 0.9% 500 ML ONE (13:33)
[2016-09-29] MEDS ORDERED: FENTAnyl 50 MCG/ML VIAL ONE (13:33)
[2016-09-29] MEDS ORDERED: HEPARIN 1000 UNITS/ML 10 ML INJ ONE (13:33)
[2016-09-29] MEDS ORDERED: CEFAZOLIN 1 GM/50 ML (PMX) 50 ML IVPB ONE (14:05)
--- NOTE | 2016-09-29 16:15 | RADRPT ---
PROCEDURE: ULTRASOUND-GUIDED VASCULAR ACCESS CLINICAL INDICATION: Perma-Cath placement TECHNIQUE: Informed consent was obtained from the patient after a discussion of the risks, benefit s, and alternatives of the procedure. Risks include, but are not limited to bleeding and infection. The right internal jugular vein was found to be patent and compressible with crocker scale and power D oppler. A picture of it was saved to the PACS. 1% lidocaine was utilized for anesthesia. Under di rect ultrasound guidance, a 21-gauge needle was advanced into the right internal jugular vein. A wi re was advanced through the micropuncture needle. The micropuncture needle was then removed over th e wire and a 5-Upper Sorbian catheter was advanced over the wire. COMPARISON: None. FINDINGS: Patent and compressible right internal jugular vein. IMPRESSION: Ultrasound guided vascular access for placement of a Perma-Cath. RPTAT: EE Physician Martha Date Time Electronically viewed and signed by Physician Martha on 09/29/2016 16:14 /
--- NOTE | 2016-09-29 16:15 | RADRPT ---
PROCEDURE: RIGHT INTERNAL JUGULAR PERMA-CATH PLACEMENT CLINICAL INDICATION: Dialysis FLUOROSCOPY TIME: 0.1 minute TECHNIQUE: The procedure, its potential risks, benefits and alternatives were explained. Risks, including but n ot limited to pain, bleeding, infection, thrombosis, embolism and arrhythmia were discussed and und erstood. Following this discussion with the patient, informed consent was obtained. The right internal jugular vein was imaged with ultrasound and was shown to be compressible, with no evidence of thrombus. An image of this vein was obtained and saved to the PACS system. The neck and chest wall were scrubbed, draped and prepped in a sterile manner. The procedure was ca rried out under aseptic conditions. 2% lidocaine with epinephrine was utilized for local anesthesia . Following the standard prep, and under ultrasound guidance, the right internal jugular vein was punctured using anterior single wall micropuncture technique, and a micropuncture catheter was plac ed within it. A 0.35" guidewire was inserted through it, and over this a Wade dialysis catheter d elivery sheath was placed, with tip within the right atrium. A Wade dialysis catheter was then pl aced through the sheath, with the long arm of the catheter positioned laterally within the right atr ium and the short arm medially at the cavoatrial junction. Fluoroscopy was utilized to guide placeme nt of the catheter. An image of its final position was saved to the PACS system. The peel-away sheat h was then removed. The remaining portion of the catheter was then positioned on the skin, and the appropriate catheter exit site was thereby determined. Following this, the skin was anesthetized at the chosen catheter exit site, and incised with a disposable blade. A tract connecting the skin ex it site with the vein entry site was then anesthetized. Using a tunneling device and a fascial dila tor, the subcutaneous tract connecting the chest wall exit site with the vein entry site was dilated . The tunneling device was then used to pull the catheter through the subcutaneous tract. Fluorosc opy showed no evidence of kinking over the course of the catheter. The external portion of the cath eter was then cut, and the dual lumen hub was affixed to it in standard manner. The catheter was fl ushed, with good blood return. It was heparinized according to standard protocol. The vein entry s ite was then closed with Dermabond. The patient tolerated the procedure well. The procedure was done under monitored moderate sedation. I administered the first dose and oversaw subsequent monitoring by the nursing staff. COMPARISON: none FINDINGS: as above. IMPRESSION: Placement of PermaCath via the right internal jugular vein, as above. The catheter is ready for use. RPTAT: EE Physician Martha Date Time Electronically viewed and signed by Carson Bearden Physician on 09/29/2016 16:14 RA/
--- NOTE | 2016-09-29 17:32 | PN ---
Date/Time of Note Date/Time of Note DATE: 09/29/16 TIME: 17:27 Assessment/Plan VTE Prophylaxis VTE Prophylaxis Intervention: other Lines/Catheters IV Catheter Type (from Nrsg): Saline Lock Assessment/Plan Assessment/Plan progressive renal failure HTN anemia epistaxis - mild, resolved P: dialysis per renal cont current rx monitor labs Subjective 24 Hr Interval Summary Free Text/Dictation Pt had permacath placed today. Mild epistaxis this am. No cp, sob. Exam/Review of Systems Vital Signs Vitals Vital Signs Date Time Temp Pulse Resp B/P Pulse Ox O2 Delivery O2 Flow Rate FiO2 09/29/16 16:48 75 152/97 09/29/16 16:20 97.4 18 97 09/29/16 15:05 Room Air 09/29/16 15:00 2.0 Intake and Output 09/28/16 09/28/16 09/29/16 15:00 23:00 07:00 Intake Total 1080 ml 500 ml Output Total 1800 ml 2100 ml Balance -720 ml -1600 ml Exam gen- nad, nontoxic. lungs- cta heart- RRR. abd- +BS, soft, NT. ext- mild edema. Results Result Diagram: 09/29/16 0645 09/29/16 0645 Results 24 hrs Laboratory Tests Test 09/29/16 06:45 White Blood Count 7.6 Red Blood Count 2.78 L Hemoglobin 7.7 L Hematocrit 24.0 L Mean Corpuscular Volume 86.3 Mean Corpuscular Hemoglobin 27.7 L Mean Corpuscular Hemoglobin Concent 32.1 Red Cell Distribution Width 14.0 Platelet Count 231 Mean Platelet Volume 10.6 H Neutrophils % 58.0 Lymphocytes % 28.6 Monocytes % 9.6 Eosinophils % 2.9 Basophils % 0.5 Nucleated Red Blood Cells % 0.0 Neutrophils # 4.4 Lymphocytes # 2.2 Monocytes # 0.7 Eosinophils # 0.2 Basophils # 0.0 Nucleated Red Blood Cells # 0.0 Prothrombin Time 12.7 Prothrombin Time Ratio 1.0 INR International Normalized Ratio 0.95 Sodium Level 139 Potassium Level 3.8 Chloride Level 103 Carbon Dioxide Level 23 Anion Gap 17 H Blood Urea Nitrogen 82 H Creatinine 9.90 H Glucose Level 105 # Hemoglobin A1c 6.3 H Calcium Level 6.7 L Medications Medications Current Medications Acetaminophen (Tylenol Tab) 500 mg Q6H PRN PO PAIN AND OR ELEVATED TEMP; Start 4/16/17 at 01:00 Clonidine (Catapres) 0.1 mg Q8 PRN PO ELEVATED BLOOD PRESSURE Last administered on 09/29/16 08:02; Admin Dose 0.1 MG; Start 09/28/16 at 01:00 Atorvastatin Calcium (Lipitor) 40 mg HS PO Last administered on 09/28/16 20:26 ; Admin Dose 40 MG; Start 09/28/16 at 21:00 Hydralazine HCl (Apresoline) 100 mg BID PO Last administered on 09/29/16 08:01 ; Admin Dose 100 MG; Start 09/28/16 at 09:00 Metoprolol Tartrate (Lopressor) 50 mg DAILY PO Last administered on 09/29/16 08:22; Admin Dose 50 MG; Start 09/29/16 at 08:00 Nifedipine 60 mg 60 mg BID PO Last administered on 09/29/16 08:22; Admin Dose 60 MG; Start 09/29/16 at 09:00 Ferric Sodium Gluconate Complex/ Sodium Chloride (Ferrlecit/NS) 110 ml @ 110 mls/hr Q24H IVPB Last administered on 09/29/16 11:50; Admin Dose 110 MLS/HR; Start 09/29/16 at 08:30; Stop 10/03/16 at 09:29 Epoetin Cecil (Epogen (Esrd)) 10,000 units MoWeFr@17 SC ; Start 09/29/16 at 17:00 TAMMY TALLEY MD Sep 29, 2016 17:32
[2016-09-29] MEDS: EPOETIN 10000 UNITS/1 ML INJ (ESRD) SC SCH (17:39)
--- NOTE | 2016-09-29 19:32 | CONS ---
Date/Time of Note Date/Time of Note DATE: 09/29/16 TIME: 19:25 Assessment/Plan Assessment/Plan Additional Assessment/Plan 60 yobm w/ CKD, htn, DM, hld, bipolar, and other issues who was admitted for acute on chronic renal failure. Asked for a pre-op assessment for AV fistula creation. While pt has several risk factors, he had no known CAD and no symptoms of angina. His echo reveals EF of 65%. ECG has no ischemic ST changes. Troponin is negative. Pt has reasonable exercise tolerance (claims to be able to walk 1 hr w/o issues). No further risk stratification/testing is needed before low risk procedure. Would continue bp meds (aline. beta blockers) and can use IV metoprolol evie-operatively to keep HR < 90 and SBP < 150. Consultation Date/Type/Reason Admit Date/Time Sep 27, 2016 at 20:14 Date of Consultation: Sep 29, 2016 Type of Consultation: Cardiology Reason for Consultation Pre-op eval for AV fistula creation Hx of Present Illness 60 yobm w/ CKD, htn, DM, hld, bipolar, and other issues who was admitted for acute on chronic renal failure. Pt stated he had worsen LE edema. His creatinine was 10. Pt refused dialysis in the past, but he now agrees. Asked to see pt regarding pre-op eval. Pt denies hx of CAD, prior [place], PCI. He states he had a negative stress test over 5 yrs ago. He denies cp or sob. He states he exercises by walk 1 hr on the treadmill at 4 mph w/o cp or sob. He can easily climb up 1-2 flight of stairs (at baseline). Echo today revealed EF of 65%, mod LVH w/o severe valve disease. ECG revealed nsr @ 76, nl axis/ interval, no pathologic Q, J-point elevation in V2-V3, no ischemic ST changes. Psychological: no complaints Past Medical History ESRD htn hld DM BPH bipolar schizophrenia Social History Smoking Status: Former smoker Exam/Review of Systems Vital Signs Vitals Vital Signs Date Time Temp Pulse Resp B/P Pulse Ox O2 Delivery O2 Flow Rate FiO2 09/29/16 16:48 75 152/97 09/29/16 16:20 97.4 18 97 09/29/16 15:05 Room Air 09/29/16 15:00 2.0 Intake and Output 09/28/16 09/28/16 09/29/16 15:00 23:00 07:00 Intake Total 1080 ml 500 ml Output Total 1800 ml 2100 ml Balance -720 ml -1600 ml Exam Constitutional: alert, No distress Eyes: No icteric Neck: supple, No jvd Respiratory: clear to auscultation Cardiovascular: regular rate and rhythm, No murmurs/extra sounds Gastrointestinal: soft Extremities: other (trace edema) Neurological: nl mental status Results Result Diagram: 09/29/16 0645 09/29/16 0645 Results 24 hrs Laboratory Tests Test 09/29/16 06:45 White Blood Count 7.6 Red Blood Count 2.78 L Hemoglobin 7.7 L Hematocrit 24.0 L Mean Corpuscular Volume 86.3 Mean Corpuscular Hemoglobin 27.7 L Mean Corpuscular Hemoglobin Concent 32.1 Red Cell Distribution Width 14.0 Platelet Count 231 Mean Platelet Volume 10.6 H Neutrophils % 58.0 Lymphocytes % 28.6 Monocytes % 9.6 Eosinophils % 2.9 Basophils % 0.5 Nucleated Red Blood Cells % 0.0 Neutrophils # 4.4 Lymphocytes # 2.2 Monocytes # 0.7 Eosinophils # 0.2 Basophils # 0.0 Nucleated Red Blood Cells # 0.0 Prothrombin Time 12.7 Prothrombin Time Ratio 1.0 INR International Normalized Ratio 0.95 Sodium Level 139 Potassium Level 3.8 Chloride Level 103 Carbon Dioxide Level 23 Anion Gap 17 H Blood Urea Nitrogen 82 H Creatinine 9.90 H Glucose Level 105 # Hemoglobin A1c 6.3 H Calcium Level 6.7 L Medications Medications Current Medications Acetaminophen (Tylenol Tab) 500 mg Q6H PRN PO PAIN AND OR ELEVATED TEMP; Start 09/28/16 at 01:00 Clonidine (Catapres) 0.1 mg Q8 PRN PO ELEVATED BLOOD PRESSURE Last administered on 09/29/16 08:02; Admin Dose 0.1 MG; Start 09/28/16 at 01:00 Atorvastatin Calcium (Lipitor) 40 mg HS PO Last administered on 09/28/16 20:26 ; Admin Dose 40 MG; Start 09/28/16 at 21:00 Hydralazine HCl (Apresoline) 100 mg BID PO Last administered on 09/29/16 08:01 ; Admin Dose 100 MG; Start 09/28/16 at 09:00 Metoprolol Tartrate (Lopressor) 50 mg DAILY PO Last administered on 09/29/16 08:22; Admin Dose 50 MG; Start 09/29/16 at 08:00 Nifedipine 60 mg 60 mg BID PO Last administered on 09/29/16 08:22; Admin Dose 60 MG; Start 09/29/16 at 09:00 Ferric Sodium Gluconate Complex/ Sodium Chloride (Ferrlecit/NS) 110 ml @ 110 mls/hr Q24H IVPB Last administered on 09/29/16 11:50; Admin Dose 110 MLS/HR; Start 09/29/16 at 08:30; Stop 10/03/16 at 09:29 Epoetin Cecil (Epogen (Esrd)) 10,000 units MoWeFr@17 SC Last administered on 17:39; Admin Dose 10,000 UNITS; Start 09/29/16 at 17:00 FLY STEVEN Sep 29, 2016 19:32
[2016-09-29] MEDS: ATORVASTATIN 40 MG TAB PO SCH (21:03)
[2016-09-30] VITALS (20 sets, daily range): BP systolic 121–164; BP diastolic 75–98; PULSE 72–83; RESP 20
[2016-09-30 06:58] LABS: ADD SCAN DIFF NO
[2016-09-30 07:08] LABS: BASOPHILS % 0.3 % (0.0-2.0); EOSINOPHILS # 0.2 10^3/ul (0.0-0.5); EOSINOPHILS % 2.6 % (0.0-7.0); HEMATOCRIT 22.1 % (42.0-52.0); LYMPHOCYTES # 2.3 10^3/ul (0.8-2.9); LYMPHOCYTES % 29.4 % (15.0-51.0); MEAN CORPUSCULAR HEMOGLOBIN 27.2 pg (29.0-33.0); MEAN CORPUSCULAR HGB CONC 31.7 g/dl (32.0-37.0); MEAN PLATELET VOLUME 11.2 fl (7.4-10.4); MONOCYTE # 0.9 10^3/ul (0.3-0.9); MONOCYTES % 10.9 % (0.0-11.0); NEUTROPHIL # 4.4 10^3/ul (1.6-7.5); NEUTROPHILS % 56.2 % (39.0-77.0); PLATELET COUNT 210 10^3/UL (140-415); RED BLOOD COUNT 2.57 10^6/ul (4.70-6.10); RED CELL DISTRIBUTION WIDTH 14.1 % (11.5-14.5); WHITE BLOOD COUNT 7.8 10^3/ul (4.8-10.8)
[2016-09-30 07:11] LABS: ALBUMIN 2.6 g/dl (3.3-4.9); ALBUMIN/GLOBULIN RATIO 0.83; CALCIUM 6.5 mg/dl (8.4-10.2); CREATININE 9.28 mg/dl (0.61-1.24); POTASSIUM 3.8 mmol/L (3.5-5.1); TOTAL PROTEIN 5.7 g/dl (6.1-8.1)
--- NOTE | 2016-09-30 07:53 | CONS ---
Date/Time of Note Date/Time of Note DATE: 09/30/16 TIME: 07:50 Assessment/Plan Assessment/Plan Problems: (1) CKD stage 5 secondary to hypertension Comment: for initial dialysis today via Permacath... to get placement of AVF w Dr Gonzalez tomorrow (2) Anemia in chronic kidney disease Comment: lost blood w procedure yesterday... will transfuse 2 u PRBC w HD today (3) HTN (hypertension) Comment: good control currently Consultation Date/Type/Reason Admit Date/Time Sep 27, 2016 at 20:14 Type of Consultation: neph 24 HR Interval Summary Free Text/Dictation doing OK... had bleeding at Permacath insertion site done yesterday... no cp or sob Exam/Review of Systems Vital Signs Vitals Vital Signs Date Time Temp Pulse Resp B/P Pulse Ox O2 Delivery O2 Flow Rate FiO2 09/30/16 07:43 98.1 77 20 127/76 97 09/30/16 04:15 Room Air 09/29/16 15:00 2.0 Intake and Output 09/29/16 09/29/16 09/30/16 14:59 22:59 06:59 Intake Total 880 ml 420 ml Output Total 800 ml 1250 ml Balance 80 ml -830 ml Exam Constitutional: alert Psych: no complaints Eyes: nl conjunctiva Neck: supple Respiratory: clear to auscultation, other (permacath Rt chest) Cardiovascular: regular rate and rhythm Gastrointestinal: soft Extremities: edema (none), normal pulses Results Result Diagram: 09/30/16 0601 09/30/16 0601 Results 24 hrs Laboratory Tests Test 09/30/16 06:01 White Blood Count 7.8 Red Blood Count 2.57 L Hemoglobin 7.0 L Hematocrit 22.1 L Mean Corpuscular Volume 86.0 Mean Corpuscular Hemoglobin 27.2 L Mean Corpuscular Hemoglobin Concent 31.7 L Red Cell Distribution Width 14.1 Platelet Count 210 Mean Platelet Volume 11.2 H Neutrophils % 56.2 Lymphocytes % 29.4 Monocytes % 10.9 Eosinophils % 2.6 Basophils % 0.3 Nucleated Red Blood Cells % 0.0 Neutrophils # 4.4 Lymphocytes # 2.3 Monocytes # 0.9 Eosinophils # 0.2 Basophils # 0.0 Nucleated Red Blood Cells # 0.0 Sodium Level 136 Potassium Level 3.8 Chloride Level 107 Carbon Dioxide Level 21 Anion Gap 12 Blood Urea Nitrogen 80 H Creatinine 9.28 H Glucose Level 97 Calcium Level 6.5 L Total Bilirubin 0.0 L Direct Bilirubin 0.00 Indirect Bilirubin 0.0 Aspartate Amino Transf (AST/SGOT) 46 Alanine Aminotransferase (ALT/SGPT) 37 Alkaline Phosphatase 71 Total Protein 5.7 L Albumin 2.6 L Globulin 3.10 Albumin/Globulin Ratio 0.83 Medications Medications Current Medications Acetaminophen (Tylenol Tab) 500 mg Q6H PRN PO PAIN AND OR ELEVATED TEMP Last administered on 09/30/16 04:39; Admin Dose 500 MG; Start 09/28/16 at 01:00 Clonidine (Catapres) 0.1 mg Q8 PRN PO ELEVATED BLOOD PRESSURE Last administered on 09/29/16 08:02; Admin Dose 0.1 MG; Start 09/28/16 at 01:00 Atorvastatin Calcium (Lipitor) 40 mg HS PO Last administered on 09/29/16 21:03 ; Admin Dose 40 MG; Start 09/28/16 at 21:00 Hydralazine HCl (Apresoline) 100 mg BID PO Last administered on 09/29/16 21:03 ; Admin Dose 100 MG; Start 09/28/16 at 09:00 Metoprolol Tartrate (Lopressor) 50 mg DAILY PO Last administered on 09/29/16 08:22; Admin Dose 50 MG; Start 09/29/16 at 08:00 Nifedipine 60 mg 60 mg BID PO Last administered on 09/29/16 21:03; Admin Dose 60 MG; Start 09/29/16 at 09:00 Ferric Sodium Gluconate Complex/ Sodium Chloride (Ferrlecit/NS) 110 ml @ 110 mls/hr Q24H IVPB Last administered on 09/29/16 11:50; Admin Dose 110 MLS/HR; Start 09/29/16 at 08:30; Stop 10/03/16 at 09:29 Epoetin Cecil (Epogen (Esrd)) 10,000 units MoWeFr@17 SC Last administered on 17:39; Admin Dose 10,000 UNITS; Start 09/29/16 at 17:00 BRIAN STEVENSON MD Sep 30, 2016 07:53
[2016-09-30 08:18] LABS: HAAIG REFLEX REFLEX FILED
--- NOTE | 2016-09-30 09:37 | PN ---
Date/Time of Note Date/Time of Note DATE: 09/30/16 TIME: 09:34 Assessment/Plan Lines/Catheters IV Catheter Type (from [facility]): Saline Lock Assessment/Plan Chief Complaint/Hosp Course -Chronic kidney disease stage V, impending end-stage renal disease: It seems the patient's renal function has worsened, and him requiring dialysis. S/P perm -catheter - -Scheduled for Left brachiocephalic fistula creation tomorrow -Optimize vascular status (BP meds, diet, nutrition, exercise, sugar control, antiplatelets). -Appreciate cardiology evaluation -Discussed findings, plan, and management with the patient, and he understands and has agreed to proceed. -Thank you for allowing us to partake in the care of your patient. Please call with any questions. Problems: Subjective 24 Hr Interval Summary no new vascular events overnight, S/P perm cath Exam/Review of Systems Vital Signs Vitals Vital Signs Date Time Temp Pulse Resp B/P Pulse Ox O2 Delivery O2 Flow Rate FiO2 09/30/16 08:00 77 09/30/16 07:43 98.1 20 127/76 97 09/30/16 04:15 Room Air 09/29/16 15:00 2.0 Intake and Output 09/29/16 09/29/16 09/30/16 14:59 22:59 06:59 Intake Total 880 ml 420 ml Output Total 800 ml 1250 ml Balance 80 ml -830 ml Exam Free Text/Dictation GENERAL: Alert and oriented x3, PULMONARY: Clear to auscultation bilaterally. Right CWC intact CARDIOVASCULAR: S1, S2 present. ABDOMEN: Soft, nontender, nondistended. Bowel sounds positive. EXTREMITIES: Lower extremities: Palpable femoral pulse, nonpalpable pedal pulse. Motor and sensory intact. Capillary refill 3 seconds. Edema 2+. Upper extremities: Palpable brachial pulse. Motor and sensory intact. Cap refill 2 seconds. Results Result Diagram: 09/30/16 0601 09/30/16 06 RONNIE DIAZ MD Sep 30, 2016 09:37
[2016-09-30] MEDS: BRIMONIDINE 0.2%-TIMOLOL 0.5% 5ML OPH BOTH EYES SCH ×2 (10:00→21:09)
[2016-09-30 10:02] LABS: HEPATITIS B CORE ANTIBODY REACTIVE (NEGATIVE)
[2016-09-30] MEDS: NIFEdipine (XL) 60 MG TAB PO SCH ×2 (11:32→21:09)
[2016-09-30] MEDS: PREDNISOLONE ACET 1% 5 ML OPH BOTH EYES SCH (11:33)
[2016-09-30] MEDS: METOPROLOL 50 MG TAB PO SCH (11:33)
[2016-09-30] MEDS: CALCIUM CARBONATE 750 MG CHEW TAB PO SCH ×3 (11:33→18:51)
[2016-09-30] MEDS: SOD FERRIC GLUC COMPLX 125 MG in SOD CHLORIDE 0.9% 100 ML IVPB SCH (13:44)
--- NOTE | 2016-09-30 14:09 | PN ---
Date/Time of Note Date/Time of Note DATE: 09/30/16 TIME: 14:06 Assessment/Plan VTE Prophylaxis VTE Prophylaxis Intervention: other Lines/Catheters IV Catheter Type (from Nrsg): Saline Lock Assessment/Plan Assessment/Plan A: progressive RF HTN anemia P: AVF tomorrow cont current rx monitor labs renal, vascular, cardiology care appreciated Subjective 24 Hr Interval Summary Free Text/Dictation Pt had dialysis this am tolerated. Given 2 units prbcs improved energy. No cp , sob. Plan for AVF tomorrow. Exam/Review of Systems Vital Signs Vitals Vital Signs Date Time Temp Pulse Resp B/P Pulse Ox O2 Delivery O2 Flow Rate FiO2 09/30/16 12:00 73 09/30/16 12:00 97.9 20 158/95 98 09/30/16 04:15 Room Air 09/29/16 15:00 2.0 Intake and Output 09/29/16 09/29/16 09/30/16 15:00 23:00 07:00 Intake Total 880 ml 420 ml Output Total 800 ml 1250 ml Balance 80 ml -830 ml Exam gen- nad, nontoxic lungs- CTA heart- RRR abd- +BS, soft, nontender ext- mild edema Results Result Diagram: 09/30/16 0601 09/30/16 0601 Results 24 hrs Laboratory Tests Test 09/30/16 06:01 09/30/16 08:11 White Blood Count 7.8 Red Blood Count 2.57 L Hemoglobin 7.0 L Hematocrit 22.1 L Mean Corpuscular Volume 86.0 Mean Corpuscular Hemoglobin 27.2 L Mean Corpuscular Hemoglobin Concent 31.7 L Red Cell Distribution Width 14.1 Platelet Count 210 Mean Platelet Volume 11.2 H Neutrophils % 56.2 Lymphocytes % 29.4 Monocytes % 10.9 Eosinophils % 2.6 Basophils % 0.3 Nucleated Red Blood Cells % 0.0 Neutrophils # 4.4 Lymphocytes # 2.3 Monocytes # 0.9 Eosinophils # 0.2 Basophils # 0.0 Nucleated Red Blood Cells # 0.0 Sodium Level 136 Potassium Level 3.8 Chloride Level 107 Carbon Dioxide Level 21 Anion Gap 12 Blood Urea Nitrogen 80 H Creatinine 9.28 H Glucose Level 97 Calcium Level 6.5 L Total Bilirubin 0.0 L Direct Bilirubin 0.00 Indirect Bilirubin 0.0 Aspartate Amino Transf (AST/SGOT) 46 Alanine Aminotransferase (ALT/SGPT) 37 Alkaline Phosphatase 71 Total Protein 5.7 L Albumin 2.6 L Globulin 3.10 Albumin/Globulin Ratio 0.83 Hepatitis B Surface Antigen NEGATIVE Hepatitis B Core Total Antibody REACTIVE H Hepatitis C Antibody REACTIVE H Medications Medications Current Medications Acetaminophen (Tylenol Tab) 500 mg Q6H PRN PO PAIN AND OR ELEVATED TEMP Last administered on 09/30/16 04:39; Admin Dose 500 MG; Start 09/28/16 at 01:00 Clonidine (Catapres) 0.1 mg Q8 PRN PO ELEVATED BLOOD PRESSURE Last administered on 09/29/16 08:02; Admin Dose 0.1 MG; Start 09/28/16 at 01:00 Atorvastatin Calcium (Lipitor) 40 mg HS PO Last administered on 09/29/16 21:03 ; Admin Dose 40 MG; Start 09/28/16 at 21:00 Hydralazine HCl (Apresoline) 100 mg BID PO Last administered on 09/30/16 11:32 ; Admin Dose 100 MG; Start 09/28/16 at 09:00 Metoprolol Tartrate (Lopressor) 50 mg DAILY PO Last administered on 09/30/16 11:33; Admin Dose 50 MG; Start 09/29/16 at 08:00 Nifedipine 60 mg 60 mg BID PO Last administered on 09/30/16 11:32; Admin Dose 60 MG; Start 09/29/16 at 09:00 Ferric Sodium Gluconate Complex/ Sodium Chloride (Ferrlecit/NS) 110 ml @ 110 mls/hr Q24H IVPB Last administered on 09/30/16 13:44; Admin Dose 110 MLS/HR; Start 09/29/16 at 08:30; Stop 10/03/16 at 09:29 Epoetin Cecil (Epogen (Esrd)) 10,000 units MoWeFr@17 SC Last administered on 17:39; Admin Dose 10,000 UNITS; Start 09/29/16 at 17:00 Brimonidine/ Timolol (Combigan Oph) 1 drop BID BOTH EYES ; Start 09/30/16 at 10: 00 Prednisolone Acetate (Pred-Forte 1%) 1 drop AM BOTH EYES Last administered on 11:33; Admin Dose 1 DROP; Start 09/30/16 at 10:00 TAMMY TALLEY MD Sep 30, 2016 14:09
[2016-09-30] MEDS: ATORVASTATIN 40 MG TAB PO SCH (21:09)
[2016-10-01] VITALS (16 sets, daily range): BP systolic 107–153; BP diastolic 61–82; PULSE 66–83; RESP 10–18
[2016-10-01] MEDS ORDERED: LIDOCAINE 2% (SDV) 5 ML INJ ONE (07:00)
[2016-10-01] MEDS ORDERED: CEFAZOLIN 1 GM INJ ONE (07:00)
--- NOTE | 2016-10-01 07:02 | CONS ---
Date/Time of Note Date/Time of Note DATE: 10/01/16 TIME: 06:58 Assessment/Plan Assessment/Plan Problems: (1) Normocytic anemia Status: Acute Comment: s/p 2u prbc yesterday w HD...this am labs are pd (2) HTN (hypertension) Comment: much better control w med changes (3) CKD stage 5 secondary to hypertension Comment: for planned AVF today... have asked Director Organizational to see yesterday to arrange for his outpt dialysis... next HD planned for tomorrow am (4) Anemia in chronic kidney disease Comment: s/p 2u prbc yesterday... is on Ferrlecit and EPO Consultation Date/Type/Reason Admit Date/Time Sep 27, 2016 at 20:14 Type of Consultation: neph 24 HR Interval Summary Free Text/Dictation feels fine.. tolerated initial HD yesterday without incident... no more bleeding at Permacat site Rt chest Exam/Review of Systems Vital Signs Vitals Vital Signs Date Time Temp Pulse Resp B/P Pulse Ox O2 Delivery O2 Flow Rate FiO2 10/01/16 04:24 72 10/01/16 03:53 98.0 18 127/76 95 09/30/16 04:15 Room Air 09/29/16 15:00 2.0 Intake and Output 09/30/16 09/30/16 10/01/16 15:00 23:00 07:00 Intake Total 1300 ml 800 ml 350 ml Output Total 1500 ml 750 ml 920 ml Balance -200 ml 50 ml -570 ml Exam Constitutional: alert, oriented Head: normocephalic Neck: supple Respiratory: clear to auscultation (Permacath Rt chest...dressing dry) Cardiovascular: regular rate and rhythm Gastrointestinal: soft Extremities: normal pulses Results Result Diagram: 09/30/16 0601 09/30/16 0601 Results 24 hrs Laboratory Tests Test 09/30/16 08:11 Hepatitis B Surface Antigen NEGATIVE Hepatitis B Core Total Antibody REACTIVE H Hepatitis C Antibody REACTIVE H Medications Medications Current Medications Acetaminophen (Tylenol Tab) 500 mg Q6H PRN PO PAIN AND OR ELEVATED TEMP Last administered on 09/30/16t 04:39; Admin Dose 500 MG; Start 09/28/16 at 01:00 Clonidine (Catapres) 0.1 mg Q8 PRN PO ELEVATED BLOOD PRESSURE Last administered on 09/29/16 08:02; Admin Dose 0.1 MG; Start 09/28/16 at 01:00 Atorvastatin Calcium (Lipitor) 40 mg HS PO Last administered on 09/30/16 21:09 ; Admin Dose 40 MG; Start 09/28/16 at 21:00 Hydralazine HCl (Apresoline) 100 mg BID PO Last administered on 09/30/16 21:09 ; Admin Dose 100 MG; Start 09/28/16 at 09:00 Metoprolol Tartrate (Lopressor) 50 mg DAILY PO Last administered on 09/30/16 11:33; Admin Dose 50 MG; Start 09/29/16 at 08:00 Nifedipine 60 mg 60 mg BID PO Last administered on 09/30/16 21:09; Admin Dose 60 MG; Start 09/29/16 at 09:00 Ferric Sodium Gluconate Complex/ Sodium Chloride (Ferrlecit/NS) 110 ml @ 110 mls/hr Q24H IVPB Last administered on 09/30/16 13:44; Admin Dose 110 MLS/HR; Start 09/29/16 at 08:30; Stop 10/03/16 at 09:29 Epoetin Cecil (Epogen (Esrd)) 10,000 units MoWeFr@17 SC Last administered on 17:39; Admin Dose 10,000 UNITS; Start 09/29/16 at 17:00 Brimonidine/ Timolol (Combigan Oph) 1 drop BID BOTH EYES Last administered on 21:09; Admin Dose 1 DROP; Start 09/30/16 at 10:00 Prednisolone Acetate (Pred-Forte 1%) 1 drop AM BOTH EYES Last administered on 11:33; Admin Dose 1 DROP; Start 09/30/16 at 10:00 BRIAN STEVENSON MD Oct 01, 2016 07:02
[2016-10-01] MEDS: SOD FERRIC GLUC COMPLX 125 MG in SOD CHLORIDE 0.9% 100 ML IVPB SCH ×2 (08:30→15:48)
[2016-10-01] MEDS: BRIMONIDINE 0.2%-TIMOLOL 0.5% 5ML OPH BOTH EYES SCH ×2 (09:13→21:00)
[2016-10-01] MEDS: PREDNISOLONE ACET 1% 5 ML OPH BOTH EYES SCH (09:13)
--- NOTE | 2016-10-01 09:14 | PN ---
Date/Time of Note Date/Time of Note DATE: 10/01/16 TIME: 09:11 Assessment/Plan VTE Prophylaxis VTE Prophylaxis Intervention: other Lines/Catheters IV Catheter Type (from Nrsg): Saline Lock Assessment/Plan Assessment/Plan A: progressive RF started dialysis to have AVF today HTN anemia P: AVF today labs today pending cont current rx Subjective 24 Hr Interval Summary Free Text/Dictation Pt feeling pretty good. No cp, sob. To have AVF today. Exam/Review of Systems Vital Signs Vitals Vital Signs Date Time Temp Pulse Resp B/P Pulse Ox O2 Delivery O2 Flow Rate FiO2 10/01/16 08:00 79 10/01/16 03:53 98.0 18 127/76 95 09/30/16 04:15 Room Air 09/29/16 15:00 2.0 Intake and Output 09/30/16 09/30/16 10/01/16 15:00 23:00 07:00 Intake Total 1300 ml 800 ml 350 ml Output Total 1500 ml 750 ml 920 ml Balance -200 ml 50 ml -570 ml Exam gen- nad, nontoxic lungs- cta heart- regular rate and rhythm ext- trace edema. Results Result Diagram: 09/30/16 0601 09/30/16 0601 Medications Medications Current Medications Acetaminophen (Tylenol Tab) 500 mg Q6H PRN PO PAIN AND OR ELEVATED TEMP Last administered on 09/30/16 04:39; Admin Dose 500 MG; Start 09/28/16 at 01:00 Clonidine (Catapres) 0.1 mg Q8 PRN PO ELEVATED BLOOD PRESSURE Last administered on 09/29/16 08:02; Admin Dose 0.1 MG; Start 09/28/16 at 01:00 Atorvastatin Calcium (Lipitor) 40 mg HS PO Last administered on 09/30/16 21:09 ; Admin Dose 40 MG; Start 09/28/16 at 21:00 Hydralazine HCl (Apresoline) 100 mg BID PO Last administered on 09/30/16 21:09 ; Admin Dose 100 MG; Start 09/28/16 at 09:00 Metoprolol Tartrate (Lopressor) 50 mg DAILY PO Last administered on 09/30/16 11:33; Admin Dose 50 MG; Start 09/29/16 at 08:00 Nifedipine 60 mg 60 mg BID PO Last administered on 09/30/16 21:09; Admin Dose 60 MG; Start 09/29/16 at 09:00 Ferric Sodium Gluconate Complex/ Sodium Chloride (Ferrlecit/NS) 110 ml @ 110 mls/hr Q24H IVPB Last administered on 09/30/16 13:44; Admin Dose 110 MLS/HR; Start 09/29/16 at 08:30; Stop 10/03/16 at 09:29 Epoetin Cecil (Epogen (Esrd)) 10,000 units MoWeFr@17 SC Last administered on 17:39; Admin Dose 10,000 UNITS; Start 09/29/16 at 17:00 Brimonidine/ Timolol (Combigan Oph) 1 drop BID BOTH EYES Last administered on 21:09; Admin Dose 1 DROP; Start 09/30/16 at 10:00 Prednisolone Acetate (Pred-Forte 1%) 1 drop AM BOTH EYES Last administered on 11:33; Admin Dose 1 DROP; Start 09/30/16 at 10:00 TAMMY TALLEY MD Oct 01, 2016 09:14
[2016-10-01] MEDS: NIFEdipine (XL) 60 MG TAB PO SCH ×2 (09:15→19:59)
[2016-10-01] MEDS: CALCIUM CARBONATE 750 MG CHEW TAB PO SCH ×3 (09:15→20:00)
[2016-10-01] MEDS: METOPROLOL 50 MG TAB PO SCH (09:15)
[2016-10-01] MEDS ORDERED: LIDOCAINE 1% (MPF) 30 ML INJ ONE (11:09)
[2016-10-01] MEDS ORDERED: GELATIN SIZE 100 SPONGE ONE (11:09)
[2016-10-01] MEDS ORDERED: HEPARIN 1000 UNITS/ML 10 ML INJ ONE ×2 (11:10→13:34)
[2016-10-01] MEDS ORDERED: THROMBIN 5000 UNIT VIAL ONE (11:10)
[2016-10-01] MEDS ORDERED: ROPIVACAINE 0.5 % 30 ML VIAL ONE (11:43)
[2016-10-01] MEDS ORDERED: PROPOFOL 100 ML ONE (11:44)
[2016-10-01] MEDS ORDERED: MIDAZOLAM 1 MG/ML 2 ML INJ ONE (11:46)
[2016-10-01] MEDS ORDERED: FENTAnyl 50 MCG/ML VIAL ONE (11:46)
[2016-10-01] MEDS ORDERED: HEPARIN 1000 UNITS/ML 10 ML INJ IRR ONE (12:00)
[2016-10-01] MEDS ORDERED: LIDOCAINE 1% (MPF) 30 ML INJ INJ ONE (12:00)
[2016-10-01] MEDS ORDERED: GELATIN SIZE 100 SPONGE TOP ONE (12:00)
[2016-10-01] MEDS ORDERED: THROMBIN 5000 UNIT VIAL TOP ONE (12:00)
[2016-10-01] MEDS ORDERED: HYDROmorphONE (0.2 MG/ML) 10ML SYG IV PRN ×2 (13:30)
[2016-10-01] MEDS ORDERED: INSULIN ASPART [NOVOLOG] 3 ML PEN SC ONE (13:30)
[2016-10-01] MEDS ORDERED: LABETALOL HCL 20MG INJ IV PRN (13:30)
[2016-10-01] MEDS ORDERED: hydrALAzine 20 MG INJ IV PRN (13:30)
[2016-10-01] MEDS ORDERED: EPHEDrine SULFATE 50 MG/5 ML SYG IV PRN (13:30)
[2016-10-01] MEDS ORDERED: FENTAnyl 50 MCG/ML VIAL IV PRN ×2 (13:30)
[2016-10-01] MEDS ORDERED: ONDANSETRON 4 MG INJ IV PRN (13:30)
[2016-10-01] MEDS ORDERED: MEPERIDINE 25 MG INJ IV PRN (13:30)
--- NOTE | 2016-10-01 15:03 | OPR ---
DATE OF OPERATION: 10/01/2016 SURGEON: Ronnie Caceres MD PREOPERATIVE DIAGNOSIS: End-stage renal disease. POSTOPERATIVE DIAGNOSIS: End-stage renal disease. PROCEDURE: Creation of a left brachiobasilic fistula creation. ANESTHESIA: Regional block and local. COMPLICATIONS: None. ESTIMATED BLOOD LOSS: Minimal. TRANSFUSIONS: None. SPECIMEN: None. HEPARIN: 3000 units. INDICATIONS: This is a 60-year-old gentleman who presented with advanced chronic kidney disease nayana t progressed to end-stage renal. The patient had a right chest wall catheter placed and has been to lerating hemodialysis through that well. Risk and benefits of the procedure were discussed with the patient and not limited to , [place], pneumonia, stroke, infection, thrombosis of fistula, revision s of AV fistula, steal syndrome, limb loss, nerve injury, and the patient has elected to undergo francisca gical intervention. DESCRIPTION OF PROCEDURE: The patient was placed in supine position on the operating room table and the arms were placed at 80 degrees. The normal bony prominences were padded. Anesthesia team had placed the appropriate lines and supraclavicular block was initiated. The patient tolerated that pr ocess well. Time out was performed. The appropriate site was marked and confirmed. The patient's l eft upper extremity was prepped and draped in the usual standard sterile fashion. Preop antibiotics were administered prior to skin incision. The skin below the antecubital fossa was infiltrated wit h 1% lidocaine. A 6 cm transverse incision was then performed below the antecubital fossa. The cep halic vein was identified and noted to be a poor quality vein and not amenable for fistula creation. It seemed to be fibrosed. Therefore, it was decided to create a new left brachiobasilic fistula. At this point, a longitudinal incision was made on the medial aspect of the upper arm near the ante cubital fossa. This was deepened through the subcutaneous tissue and fat and the basilic vein was i dentified at the level of the antecubital fossa. The vein was encircled with vessel loop and then d issected proximally for about 2 inches to the upper arm and 2 inches distally and its branches were isolated. was ligated and divided. The overlying nerve branches were preserved. The basilic vein was then dissected free from the antecubital fossa. Attention was then directed to the brachial artery. The brachial artery was palpated and the soft t issue overlying it was incised. The brachial artery was then exposed and encircled with a vessel lo op. A 2 cm segment of the brachial artery was then circumferentially dissected. The patient was gi [place] 3000 units of heparin intravenously. The basilic vein was then ligated as distal as possible at the antecubital fossa and divided. Vascular clamps were then applied on the brachial artery and a 6 mm incision was then performed on its anterior wall. The encircled vein was then spatulated to [facility] the size of the arteriotomy. An anastomosis was then created between the end of the vein and th e arteriotomy site using a 3-0 Prolene in running suture. At the completion of the anastomosis, the basilic vein was allowed to back bleed, and the brachial artery was forward flushed and back bled. The anastomosis was then irrigated with heparinized saline solution. The suture was tied and the s uture line was checked for hemostasis which was adequate. There was excellent thrill in the vein an d the vein was readily palpable under the skin. Hemostasis was then assured. There was evidence of excellent pulse in the radial and ulnar arteries at the wrist. The wounds were irrigated and the w ound was closed with a 3-0 Vicryl suture for the subcutaneous tissues. The skin was closed with ski n barb. The patient tolerated the procedure well and was taken to the postanesthesia care unit i n stable condition. All instruments, sponge, catheters and needle counts were correct x2. Dictated By: RONNIE JORDAN/MONTSERRAT Conf#: [id number] DID#: [id number]
[2016-10-01 16:09] LABS: ADD SCAN DIFF NO
[2016-10-01 16:12] LABS: BASOPHIL # 0.1 10^3/ul (0.0-0.1); BASOPHILS % 0.6 % (0.0-2.0); EOSINOPHILS # 0.2 10^3/ul (0.0-0.5); HEMATOCRIT 27.3 % (42.0-52.0); LYMPHOCYTES # 2.3 10^3/ul (0.8-2.9); LYMPHOCYTES % 27.1 % (15.0-51.0); MEAN CORPUSCULAR HEMOGLOBIN 28.7 pg (29.0-33.0); MEAN CORPUSCULAR VOLUME 86.9 fl (82.0-101.0); MEAN PLATELET VOLUME 10.6 fl (7.4-10.4); MONOCYTE # 0.8 10^3/ul (0.3-0.9); MONOCYTES % 9.4 % (0.0-11.0); NEUTROPHIL # 5.1 10^3/ul (1.6-7.5); NEUTROPHILS % 60.3 % (39.0-77.0); NUCLEATED RED BLOOD CELLS% 0.2 /100WBC (0.0-0.0); PLATELET COUNT 221 10^3/UL (140-415); RED BLOOD COUNT 3.14 10^6/ul (4.70-6.10); RED CELL DISTRIBUTION WIDTH 14.2 % (11.5-14.5); WHITE BLOOD COUNT 8.5 10^3/ul (4.8-10.8)
[2016-10-01 16:30] LABS: POTASSIUM 3.8 mmol/L (3.5-5.1)
[2016-10-01 16:32] LABS: CREATININE 7.78 mg/dl (0.61-1.24)
[2016-10-01 16:33] LABS: CALCIUM 7.7 mg/dl (8.4-10.2)
[2016-10-01] MEDS: EPOETIN 10000 UNITS/1 ML INJ (ESRD) SC SCH ×2 (17:00→19:57)
[2016-10-01] MEDS: ATORVASTATIN 40 MG TAB PO SCH (19:59)
[2016-10-01] MEDS ORDERED: HYDROCODONE/APAP (5/325) TAB PO PRN (23:30)
[2016-10-02] VITALS (14 sets, daily range): BP systolic 125–183; BP diastolic 59–94; PULSE 80–88; RESP 18–19
[2016-10-02 07:47] LABS: ADD SCAN DIFF NO
[2016-10-02 07:54] LABS: BASOPHILS % 0.3 % (0.0-2.0); EOSINOPHILS # 0.1 10^3/ul (0.0-0.5); EOSINOPHILS % 1.4 % (0.0-7.0); HEMATOCRIT 26.3 % (42.0-52.0); HEMOGLOBIN 8.6 g/dl (14.0-18.0); LYMPHOCYTES # 1.7 10^3/ul (0.8-2.9); LYMPHOCYTES % 17.1 % (15.0-51.0); MEAN CORPUSCULAR HEMOGLOBIN 28.7 pg (29.0-33.0); MEAN CORPUSCULAR HGB CONC 32.7 g/dl (32.0-37.0); MEAN CORPUSCULAR VOLUME 87.7 fl (82.0-101.0); MEAN PLATELET VOLUME 10.5 fl (7.4-10.4); MONOCYTE # 0.9 10^3/ul (0.3-0.9); MONOCYTES % 8.5 % (0.0-11.0); NEUTROPHIL # 7.3 10^3/ul (1.6-7.5); NUCLEATED RED BLOOD CELLS% 0.2 /100WBC (0.0-0.0); PLATELET COUNT 232 10^3/UL (140-415); RED CELL DISTRIBUTION WIDTH 14.4 % (11.5-14.5); WHITE BLOOD COUNT 10.1 10^3/ul (4.8-10.8)
--- NOTE | 2016-10-02 08:04 | CONS ---
Date/Time of Note Date/Time of Note DATE: 10/02/16 TIME: 08:01 Assessment/Plan Assessment/Plan Problems: (1) HTN (hypertension) Comment: good control on current meds (2) Anemia in chronic kidney disease Comment: on Epo and Ferllecit, now Fe replete...did get 2u prbc earlier (3) CKD stage 5 secondary to hypertension Comment: for HD today... still awaiting Patching Machine Operator to see pt, and arrange for outpt HD... as stated, prefer [facility], the MWF shift if possible...await their eval, as pt canNOT be d/c until this is arranged Consultation Date/Type/Reason Admit Date/Time Sep 27, 2016 at 20:14 Type of Consultation: neph 24 HR Interval Summary Free Text/Dictation doing fine... expected pain LUE s/p creation of AVF yesterday... STILL has NOT been seen by the Faith Doctor to arrange for outpt HD! Exam/Review of Systems Vital Signs Vitals Vital Signs Date Time Temp Pulse Resp B/P Pulse Ox O2 Delivery O2 Flow Rate FiO2 10/02/16 07:28 98.1 86 19 161/87 95 10/01/16 15:48 Room Air 09/29/16 15:00 2.0 Intake and Output 10/01/16 10/01/16 10/02/16 15:00 23:00 07:00 Intake Total 200 ml 240 ml Output Total 5 ml 4 ml Balance 195 ml 236 ml Exam Constitutional: alert, oriented Head: normocephalic Respiratory: clear to auscultation Cardiovascular: regular rate and rhythm Extremities: normal pulses (good bruit LUE... no edema...intact n/v) Results Result Diagram: 10/02/16 0655 10/01/16 1558 Results 24 hrs Laboratory Tests Test 10/01/16 09:52 10/01/16 15:58 10/02/16 06:55 Lab Scanned Report REFERENCE LAB White Blood Count 8.5 10.1 Red Blood Count 3.14 #L 3.00 L Hemoglobin 9.0 #L 8.6 L Hematocrit 27.3 #L 26.3 L Mean Corpuscular Volume 86.9 87.7 Mean Corpuscular Hemoglobin 28.7 L 28.7 L Mean Corpuscular Hemoglobin Concent 33.0 32.7 Red Cell Distribution Width 14.2 14.4 Platelet Count 221 232 Mean Platelet Volume 10.6 H 10.5 H Neutrophils % 60.3 72.0 Lymphocytes % 27.1 17.1 Monocytes % 9.4 8.5 Eosinophils % 2.0 1.4 Basophils % 0.6 0.3 Nucleated Red Blood Cells % 0.2 H 0.2 H Neutrophils # 5.1 7.3 Lymphocytes # 2.3 1.7 Monocytes # 0.8 0.9 Eosinophils # 0.2 0.1 Basophils # 0.1 0.0 Nucleated Red Blood Cells # 0.0 0.0 Sodium Level 138 Potassium Level 3.8 Chloride Level 104 Carbon Dioxide Level 24 Anion Gap 14 Blood Urea Nitrogen 52 H Creatinine 7.78 H Glucose Level 105 Calcium Level 7.7 L Medications Medications Current Medications Acetaminophen (Tylenol Tab) 500 mg Q6H PRN PO PAIN AND OR ELEVATED TEMP Last administered on 09/30/16 04:39; Admin Dose 500 MG; Start 09/28/16 at 01:00 Clonidine (Catapres) 0.1 mg Q8 PRN PO ELEVATED BLOOD PRESSURE Last administered on 09/29/16 08:02; Admin Dose 0.1 MG; Start 09/28/16 at 01:00 Atorvastatin Calcium (Lipitor) 40 mg HS PO Last administered on 10/01/16 19:59 ; Admin Dose 40 MG; Start 09/28/16 at 21:00 Hydralazine HCl (Apresoline) 100 mg BID PO Last administered on 10/01/16 19:58 ; Admin Dose 100 MG; Start 09/28/16 at 09:00 Metoprolol Tartrate (Lopressor) 50 mg DAILY PO Last administered on 10/01/16 09:15; Admin Dose 50 MG; Start 09/29/16 at 08:00 Nifedipine 60 mg 60 mg BID PO Last administered on 10/01/16 19:59; Admin Dose 60 MG; Start 09/29/16 at 09:00 Ferric Sodium Gluconate Complex/ Sodium Chloride (Ferrlecit/NS) 110 ml @ 110 mls/hr Q24H IVPB Last administered on 10/01/16 15:48; Admin Dose 110 MLS/HR; Start 09/29/16 at 08:30; Stop 10/03/16 at 09:29 Epoetin Cecil (Epogen (Esrd)) 10,000 units MoWeFr@17 SC Last administered on 19:57; Admin Dose 10,000 UNITS; Start 09/29/16 at 17:00 Brimonidine/ Timolol (Combigan Oph) 1 drop BID BOTH EYES Last administered on 09:13; Admin Dose 1 DROP; Start 09/30/16 at 10:00 Prednisolone Acetate (Pred-Forte 1%) 1 drop AM BOTH EYES Last administered on 09:13; Admin Dose 1 DROP; Start 09/30/16 at 10:00 Acetaminophen/ Hydrocodone Bitart ([place] (5/325)) 1 tab Q6H PRN PO PAIN LEVEL 6 -10 Last administered on 10/01/16 23:32; Admin Dose 1 TAB; Start 10/01/16 at 23 :30 BRIAN STEVENSON MD Oct 02, 2016 08:04
[2016-10-02 08:11] LABS: CALCIUM 7.5 mg/dl (8.4-10.2); CREATININE 8.06 mg/dl (0.61-1.24); POTASSIUM 3.4 mmol/L (3.5-5.1)
[2016-10-02] MEDS: PREDNISOLONE ACET 1% 5 ML OPH BOTH EYES SCH (08:57)
[2016-10-02] MEDS: SOD FERRIC GLUC COMPLX 125 MG in SOD CHLORIDE 0.9% 100 ML IVPB SCH (08:57)
[2016-10-02] MEDS: BRIMONIDINE 0.2%-TIMOLOL 0.5% 5ML OPH BOTH EYES SCH (08:57)
[2016-10-02] MEDS: METOPROLOL 50 MG TAB PO SCH (08:58)
[2016-10-02] MEDS: CALCIUM CARBONATE 750 MG CHEW TAB PO SCH ×2 (08:59→12:34)
[2016-10-02] MEDS: NIFEdipine (XL) 60 MG TAB PO SCH (08:59)
[2016-10-02] MEDS ORDERED: POTASSIUM CHLORIDE (SR) 20 MEQ TAB PO STA (13:15)
--- NOTE | 2016-10-02 13:15 | PN ---
Date/Time of Note Date/Time of Note DATE: 10/02/16 TIME: 13:12 Assessment/Plan VTE Prophylaxis VTE Prophylaxis Intervention: other Lines/Catheters IV Catheter Type (from Nrsg): Saline Lock Assessment/Plan Assessment/Plan A: progressive RF HTN anemia hypokalemia P: k replacement cont current rx await arrangement of outpt dialysis home soon Subjective 24 Hr Interval Summary Free Text/Dictation Pt had AVF placed yesterday, dialysis this am. No cp, sob, abd pain. Awaiting arrangement of outpt dialysis. Exam/Review of Systems Vital Signs Vitals Vital Signs Date Time Temp Pulse Resp B/P Pulse Ox O2 Delivery O2 Flow Rate FiO2 10/02/16 12:15 84 10/02/16 11:19 98.1 18 183/94 96 10/01/16 15:48 Room Air 09/29/16 15:00 2.0 Intake and Output 10/01/16 10/01/16 10/02/16 15:00 23:00 07:00 Intake Total 200 ml 240 ml Output Total 5 ml 4 ml Balance 195 ml 236 ml Exam gen- NAD, nontoxic lungs- CTA heart- RRR ext- no cc, tr edema. Results Result Diagram: 10/02/16 0655 10/02/16 0655 Results 24 hrs Laboratory Tests Test 10/01/16 15:58 10/02/16 06:55 White Blood Count 8.5 10.1 Red Blood Count 3.14 #L 3.00 L Hemoglobin 9.0 #L 8.6 L Hematocrit 27.3 #L 26.3 L Mean Corpuscular Volume 86.9 87.7 Mean Corpuscular Hemoglobin 28.7 L 28.7 L Mean Corpuscular Hemoglobin Concent 33.0 32.7 Red Cell Distribution Width 14.2 14.4 Platelet Count 221 232 Mean Platelet Volume 10.6 H 10.5 H Neutrophils % 60.3 72.0 Lymphocytes % 27.1 17.1 Monocytes % 9.4 8.5 Eosinophils % 2.0 1.4 Basophils % 0.6 0.3 Nucleated Red Blood Cells % 0.2 H 0.2 H Neutrophils # 5.1 7.3 Lymphocytes # 2.3 1.7 Monocytes # 0.8 0.9 Eosinophils # 0.2 0.1 Basophils # 0.1 0.0 Nucleated Red Blood Cells # 0.0 0.0 Sodium Level 138 136 Potassium Level 3.8 3.4 L Chloride Level 104 106 Carbon Dioxide Level 24 24 Anion Gap 14 9 # Blood Urea Nitrogen 52 H 52 H Creatinine 7.78 H 8.06 H Glucose Level 105 117 Calcium Level 7.7 L 7.5 L Medications Medications Current Medications Acetaminophen (Tylenol Tab) 500 mg Q6H PRN PO PAIN AND OR ELEVATED TEMP Last administered on 09/30/16 04:39; Admin Dose 500 MG; Start 09/28/16 at 01:00 Clonidine (Catapres) 0.1 mg Q8 PRN PO ELEVATED BLOOD PRESSURE Last administered on 09/29/16 08:02; Admin Dose 0.1 MG; Start 09/28/16 at 01:00 Atorvastatin Calcium (Lipitor) 40 mg HS PO Last administered on 10/01/16 19:59 ; Admin Dose 40 MG; Start 09/28/16 at 21:00 Hydralazine HCl (Apresoline) 100 mg BID PO Last administered on 10/01/16 19:58 ; Admin Dose 100 MG; Start 09/28/16 at 09:00 Metoprolol Tartrate (Lopressor) 50 mg DAILY PO Last administered on 10/02/16 08:58; Admin Dose 50 MG; Start 09/29/16 at 08:00 Nifedipine 60 mg 60 mg BID PO Last administered on 10/01/16 19:59; Admin Dose 60 MG; Start 09/29/16 at 09:00 Ferric Sodium Gluconate Complex/ Sodium Chloride (Ferrlecit/NS) 110 ml @ 110 mls/hr Q24H IVPB Last administered on 10/02/16 08:57; Admin Dose 110 MLS/HR; Start 09/29/16 at 08:30; Stop 10/03/16 at 09:29 Epoetin Cecil (Epogen (Esrd)) 10,000 units MoWeFr@17 SC Last administered on 19:57; Admin Dose 10,000 UNITS; Start 09/29/16 at 17:00 Brimonidine/ Timolol (Combigan Oph) 1 drop BID BOTH EYES Last administered on 08:57; Admin Dose 1 DROP; Start 09/30/16 at 10:00 Prednisolone Acetate (Pred-Forte 1%) 1 drop AM BOTH EYES Last administered on 08:57; Admin Dose 1 DROP; Start 09/30/16 at 10:00 Acetaminophen/ Hydrocodone Bitart ([place] (5/325)) 1 tab Q6H PRN PO PAIN LEVEL 6 -10 Last administered on 10/01/16 23:32; Admin Dose 1 TAB; Start 10/01/16 at 23 :30 TAMMY TALLEY MD Oct 02, 2016 13:15
== END 2016-10-02 14:00 | disposition left against medical advice (07) | DRG 673 ==
LOC: E/R 15:38 → UNDOADMIN 20:14 → MS4 20:14 → PP2 20:14 → MS4 23:42
PROVIDERS: ADMIT Internal Medicine; ATTEND Internal Medicine
PROC: 05HM33Z Insertion of Infusion Device into Right Internal Jugular Vein, Percutaneous Approach (ICD-10-PCS; 2016-09-29)
PROC: 5A1D00Z (ICD-10-PCS; 2016-09-30)
PROC: B543ZZA Ultrasonography of Right Jugular Veins, Guidance (ICD-10-PCS; 2016-09-30)
PROC: 30233N1 Transfusion of Nonautologous Red Blood Cells into Peripheral Vein, Percutaneous Approach (ICD-10-PCS; 2016-09-30)
PROC: 03180ZD Bypass Left Brachial Artery to Upper Arm Vein, Open Approach (ICD-10-PCS; principal; 2016-10-01 11:30)
DX: I12.0 Hypertensive chronic kidney disease with stage 5 chronic kidney disease or end stage renal disease (principal); N18.6 End stage renal disease; N17.9 Acute kidney failure, unspecified; I42.9 Cardiomyopathy, unspecified; E11.22 Type 2 diabetes mellitus with diabetic chronic kidney disease; I25.10 Atherosclerotic heart disease of native coronary artery without angina pectoris; N40.0 Benign prostatic hyperplasia without lower urinary tract symptoms; F31.9 Bipolar disorder, unspecified; E78.5 Hyperlipidemia, unspecified; D63.1 Anemia in chronic kidney disease; F20.9 Schizophrenia, unspecified; E87.6 Hypokalemia; Z99.2 Dependence on renal dialysis; Z79.4 Long term (current) use of insulin; Z87.891 Personal history of nicotine dependence
CPT/HCPCS: 36415; 36430; 36558; 71010; 76775; 76942; 80048; 80053; 81001; 81003; 82607; 82728; 82746; 83036; 83540; 83880; 83970; 84100; 84484; 85025; 85610; 86644; 86704; 86709; 86803; 86850; 86900; 86901; 86920; 87340; 90935; 93005; 93306; 93923; 93970; 96374; 96375; 96376; J0690; J0885; J0886; J1644; J1815; J2250; J2405; J2795; J2916; J3010; J7030; J7040; P9016

== ENCOUNTER 2016-10-28 17:01 | Inpatient (IN) | payer MEDICARE, OTHER ==
[~2016-10-28] VITALS: Ht 188 cm; Wt 97.1 kg
[~2016-10-28 17:01] MED LIST changes: -DULA1.5P SQ; -DUTA0.5C PO; -HYDR-3672 PO; -LEVE10006 PO; -LOTE5DRO3 BOTH EYES; +METO25TA7 PO; -NASO17 NASAL
[2016-10-28] MEDS ORDERED: ASPIRIN 81 MG TAB PO STA (20:59)
[2016-10-28] MEDS ORDERED: NITROGLYCERIN 2% 1 GM OINT PKT TD STA (20:59)
--- NOTE | 2016-10-28 21:02 | ERA ---
ER Documentation Chief Complaint Date/Time DATE: 10/28/16 TIME: 21:00 Chief Complaint BILATERAL LEG SWELLING TODAY, HAD DIALYSIS YESTERDAY HPI Patient is a 60-year-old male who presents with gradual onset, constant, moderate, progressive generalized swelling to bilateral legs and abdomen for 2 weeks. He also reports feeling short of breath which is worse with lying down. Denies chest pain, fever. Reports dry cough. The patient has been on dialysis for 3 weeks, and was last dialyzed yesterday. He reports that despite dialysis, he is continuing to have worsening edema. Denies history of CHF or [place] , denies history of cirrhosis. ROS All systems reviewed and are negative except as per history of present illness. Medications Home Meds Reported Medications Hydralazine Hcl* (Hydralazine Hcl*) 100 Mg Tablet, 100 MG PO BID, #60 TAB 10/28/16 Metoprolol Succinate* (Toprol XL*) 25 Mg Tab.sr.24h, 25 MG PO DAILY, #30 TAB 09/27/16 Atorvastatin* (Atorvastatin*) 40 Mg Tablet, 40 MG PO QHS, #30 TAB 03/27/16 Brimonidine/Timolol* (Combigan*) 5 Ml Drops, 1 DROP BOTH EYES BID, BOTTLE 03/27/16 Doxycycline Monohydrate* (Doxycycline Monohydrate*) 100 Mg Tablet, 100 MG PO DAILY, TAB 03/27/16 Discontinued Scripts Furosemide (Lasix) 40 Mg Tab, 40 MG PO DAILY, #30 TAB Prov:JERSEY FARIAS. DO 03/27/16 Nifedipine (Nifedical Xl) 60 Mg Tab.er.24, 60 MG PO 1 by mouth 4 times a, #30 TAB Prov:JERSEY FARIAS DO 03/27/16 Allergies Allergies: Coded Allergies: No Known Allergies (Verified Allergy, Mild, 10/28/16) PMhx/Soc Past medical history: Hypertension, end-stage renal disease Past surgical history: Dialysis catheter Social history: Denies tobacco or alcohol History of Surgery: No Anesthesia Reaction: No Hx Neurological Disorder: No Hx Respiratory Disorders: No Hx Cardiac Disorders: Yes (htn) Hx Psychiatric Problems: No Hx Miscellaneous Medical Probl: No Hx Alcohol Use: No Hx Substance Use: No Hx Tobacco Use: No FmHx Family History: No coronary disease, No diabetes Physical Exam Vitals Vital Signs Date Time Temp Pulse Resp B/P Pulse Ox O2 Delivery O2 Flow Rate FiO2 10/28/16 22:00 98.2 74 16 152/93 100 Room Air 10/28/16 17:07 98.1 80 16 126/70 98 Physical Exam Const: Alert, no acute distress Head: Atraumatic Eyes: Normal Conjunctiva, mild pallor, no icterus ENT: Normal External Ears, Nose and Mouth. Moist mucous membranes Neck: Full range of motion..~ No meningismus. Mild JVD Resp: Clear to auscultation bilaterally, no wheezes, no rales Cardio: Regular rate and rhythm, 1/6 systolic murmur left upper sternal border Abd: Soft, non tender, mildly distended with fluid wave Skin: No petechiae or rashes Back: No midline or flank tenderness Ext: No cyanosis, 2+ pitting edema to the knees, symmetric bilaterally Neur: Awake and alert, cranial nerves II through XII intact bilaterally, moves and feels 4 extremities appropriately. Psych: Normal Mood and Affect Result Diagram: 10/28/16220710/28/162207 Results 24 hrs Laboratory Tests Test 10/28/16 22:08 White Blood Count 8.410^3/ul Red Blood Count 3.7710^6/ul Hemoglobin 10.7g/dl Hematocrit 33.6% Mean Corpuscular Volume 89.1fl Mean Corpuscular Hemoglobin 28.4pg Mean Corpuscular Hemoglobin Concent 31.8g/dl Red Cell Distribution Width 15.0% Platelet Count 02105^3/UL Mean Platelet Volume 10.1fl Neutrophils % 56.3% Lymphocytes % 29.7% Monocytes % 9.5% Eosinophils % 3.0% Basophils % 0.7% Nucleated Red Blood Cells % 0.0/100WBC Neutrophils # 4.710^3/ul Lymphocytes # 2.510^3/ul Monocytes # 0.810^3/ul Eosinophils # 0.310^3/ul Basophils # 0.110^3/ul Nucleated Red Blood Cells # 0.010^3/ul Prothrombin Time 11.9Sec Prothrombin Time Ratio 0.9 INR International Normalized Ratio 0.88 Activated Partial Thromboplast Time 31.6Sec Sodium Level 141mmol/L Potassium Level 4.2mmol/L Chloride Level 99mmol/L Carbon Dioxide Level 27mmol/L Anion Gap 19 Blood Urea Nitrogen 48mg/dl Creatinine 6.72mg/dl Glucose Level 112mg/dl Calcium Level 8.0mg/dl Total Bilirubin 0.0mg/dl Direct Bilirubin 0.00mg/dl Indirect Bilirubin 0.0mg/dl Aspartate Amino Transf (AST/SGOT) 55IU/L Alanine Aminotransferase (ALT/SGPT) 36IU/L Alkaline Phosphatase 115IU/L Troponin I 0.013ng/ml B-Type Natriuretic Peptide 6480PG/ML Total Protein 7.4g/dl Albumin 3.4g/dl Globulin 4.00g/dl Albumin/Globulin Ratio 0.85 Current Medications Medications (Trade) Dose Ordered Sig/Florencia Route PRN Reason Start Time Stop Time Status Last Admin Dose Admin Nitroglycerin (Nitroglycerin 2% Oint) 1 inch ONCE STAT TD 10/28/16 20:59 10/28/16 21:01 DC 10/28/16 22:29 Aspirin (Aspirin) 162 mg ONCE STAT PO 10/28/16 20:59 10/28/16 21:01 DC 10/28/16 22:29 Ondansetron HCl (Zofran Inj) 4 mg BRIDGE ORDER PRN IV NAUSEA AND/OR VOMITING 10/29/16 00:00 10/29/16 23:59 Acetaminophen (Tylenol Tab) 650 mg ER BRIDGE PRN PO MILD PAIN/FEVER 10/29/16 00:00 10/29/16 23:59 Procedures/MDM EKG read by me: Time 2108, rate 75 Rhythm: Normal sinus [place]: Normal Intervals: Borderline QTC ST-T waves: no ischemic changes Ectopy: No Q-waves: No Impression: No evidence of ischemia or arrhythmia MDM: Patient is a 60-year-old male who recently started dialysis 3 weeks ago who presents to the ER with progressive lower extremity edema and abdominal distention, as well as orthopnea. The patient has a chest x-ray showing pulmonary vascular congestion. He has significant peripheral edema and exam suggestive of ascites. The patient states that he has been going to dialysis regularly for the last 3 weeks. He has signs of volume overload, and I cannot exclude underlying CHF as well. Patient denies a prior diagnosis of CHF. There is no evidence of coronary ischemia. Patient has a normal albumin. Given inadequate fluid management and outpatient dialysis, I will admit him for further inpatient dialysis, and renal consult. Departure Diagnosis: Primary Impression: Volume overload Qualified Code: E87.79 - Other hypervolemia Additional Impressions: End stage renal disease CHF (congestive heart failure) Qualified Code: I50.9 - Congestive heart failure, unspecified congestive heart failure chronicity, unspecified congestive heart failure type Condition: Stable BONY PRICE MD October 28, 2016 21:02
--- NOTE | 2016-10-28 21:22 | RADRPT ---
PROCEDURE: XR Chest. CLINICAL INDICATION: Shortness of breath. TECHNIQUE: A single portable view of the chest was obtained. COMPARISON: 09/27/2016 FINDINGS: A right-sided hemodialysis catheter is seen with the tip in the atrial caval junction. The cardiome diastinal silhouette is mildly enlarged and is again noted. Diffuse pulmonary vascular congestion is seen which is increased. No dense consolidation or pleural effusion is seen. The soft tissues and osseous structures are unremarkable. IMPRESSION: 1. Diffuse pulmonary vascular congestion which has increased. 2. Right-sided hemodialysis catheter identified. RPTAT: HPNM Physician Lenard Date Time Electronically viewed and signed by Physician Lenard on 10/28/2016 21:21 /
[2016-10-28] MEDS ORDERED: HYDR100T7 PO (21:27)
[2016-10-28 22:00] VITALS: TEMP 98.2
[2016-10-28 22:21] LABS: ADD SCAN DIFF NO
[2016-10-28 22:22] LABS: BASOPHIL # 0.1 10^3/ul (0.0-0.1); BASOPHILS % 0.7 % (0.0-2.0); EOSINOPHILS # 0.3 10^3/ul (0.0-0.5); HEMATOCRIT 33.6 % (42.0-52.0); HEMOGLOBIN 10.7 g/dl (14.0-18.0); LYMPHOCYTES # 2.5 10^3/ul (0.8-2.9); LYMPHOCYTES % 29.7 % (15.0-51.0); MEAN CORPUSCULAR HEMOGLOBIN 28.4 pg (29.0-33.0); MEAN CORPUSCULAR HGB CONC 31.8 g/dl (32.0-37.0); MEAN CORPUSCULAR VOLUME 89.1 fl (82.0-101.0); MEAN PLATELET VOLUME 10.1 fl (7.4-10.4); MONOCYTE # 0.8 10^3/ul (0.3-0.9); MONOCYTES % 9.5 % (0.0-11.0); NEUTROPHIL # 4.7 10^3/ul (1.6-7.5); NEUTROPHILS % 56.3 % (39.0-77.0); PLATELET COUNT 306 10^3/UL (140-415); RED BLOOD COUNT 3.77 10^6/ul (4.70-6.10); WHITE BLOOD COUNT 8.4 10^3/ul (4.8-10.8)
[2016-10-28 22:42] LABS: ALBUMIN 3.4 g/dl (3.3-4.9); POTASSIUM 4.2 mmol/L (3.5-5.1)
[2016-10-28 22:44] LABS: CREATININE 6.72 mg/dl (0.61-1.24)
[2016-10-28 22:45] LABS: ALBUMIN/GLOBULIN RATIO 0.85; TOTAL PROTEIN 7.4 g/dl (6.1-8.1)
[2016-10-28 22:48] LABS: INR 0.88; PROTIME 11.9 Sec (12.2-14.2); PT RATIO 0.9
[2016-10-28 22:49] LABS: PARTIAL THROMBOPLASTIN TIME 31.6 Sec (25.0-35.0)
[2016-10-28 22:57] LABS: TROPONIN-I 0.013 ng/ml (0.00-0.12)
[2016-10-29] VITALS (10 sets, daily range): BP systolic 153–188; BP diastolic 86–100; PULSE 80–88; RESP 16–20; Ht 188 cm; Wt 97.1 kg
[2016-10-29] MEDS ORDERED: ACETAMINOPHEN 325 MG TAB PO PRN
[2016-10-29] MEDS ORDERED: ONDANSETRON 4 MG INJ IV PRN
[2016-10-29 05:14] LABS: ADD SCAN DIFF NO
[2016-10-29 05:25] LABS: BASOPHIL # 0.1 10^3/ul (0.0-0.1); BASOPHILS % 0.8 % (0.0-2.0); EOSINOPHILS # 0.3 10^3/ul (0.0-0.5); EOSINOPHILS % 3.2 % (0.0-7.0); HEMATOCRIT 28.7 % (42.0-52.0); LYMPHOCYTES # 2.4 10^3/ul (0.8-2.9); LYMPHOCYTES % 30.7 % (15.0-51.0); MEAN CORPUSCULAR HGB CONC 31.4 g/dl (32.0-37.0); MEAN CORPUSCULAR VOLUME 89.4 fl (82.0-101.0); MEAN PLATELET VOLUME 10.4 fl (7.4-10.4); MONOCYTE # 0.9 10^3/ul (0.3-0.9); MONOCYTES % 11.4 % (0.0-11.0); NEUTROPHIL # 4.1 10^3/ul (1.6-7.5); NEUTROPHILS % 53.3 % (39.0-77.0); PLATELET COUNT 245 10^3/UL (140-415); RED BLOOD COUNT 3.21 10^6/ul (4.70-6.10); RED CELL DISTRIBUTION WIDTH 14.9 % (11.5-14.5); WHITE BLOOD COUNT 7.8 10^3/ul (4.8-10.8)
[2016-10-29 05:45] LABS: ALBUMIN 2.6 g/dl (3.3-4.9); ALBUMIN/GLOBULIN RATIO 0.83; CALCIUM 7.4 mg/dl (8.4-10.2); CREATININE 6.77 mg/dl (0.61-1.24); POTASSIUM 3.9 mmol/L (3.5-5.1); TOTAL PROTEIN 5.7 g/dl (6.1-8.1)
[2016-10-29] MEDS ORDERED: FUROSEMIDE 40 MG INJ IV SCH (06:00)
[2016-10-29] MEDS: BRIMONIDINE 0.2%-TIMOLOL 0.5% 5ML OPH BOTH EYES SCH ×2 (08:13→22:20)
[2016-10-29] MEDS: DOXYCYCLINE 100 MG TAB PO SCH (08:13)
[2016-10-29] MEDS: METOPROLOL (XL) 25 MG TAB PO SCH ×2 (08:14→22:18)
--- NOTE | 2016-10-29 09:31 | RADRPT ---
PROCEDURE: Ultrasound of the bilateral lower extremity venous system. CLINICAL INDICATION: Bilateral leg pain and swelling, deep venous thrombosis TECHNIQUE: Berrios scale with and without compression, color doppler, spectral doppler of the venous system of the bilateral lower extremities was performed. Venous augmentation maneuvers were utilized . COMPARISON: Lower extremity duplex 05/09/2016 FINDINGS: RIGHT: Common femoral vein: Patent. Femoral vein: Patent. Popliteal vein: Patent. Calf veins: Patent. No soft tissue abnormalities are identified. LEFT: Common femoral vein: Patent. Femoral vein: Patent. Popliteal vein: Patent. Calf veins: Patent. No soft tissue abnormalities are identified. IMPRESSION: No evidence of a deep vein thrombosis within the bilateral lower extremities. RPTAT: AADD .Shad Duff MD, MD Date Time Electronically viewed and signed by .Shad Duff MD, on 10/29/2016 09:31 .B/
--- NOTE | 2016-10-29 09:44 | CONS ---
DATE OF ADMISSION: 10/28/2016 DATE OF CONSULTATION: 10/29/2016 Thank you very much for allowing me to evaluate this 60-year-old gentleman admitted with abdominal b loating and leg swelling of approximately 1 to 2 weeks' duration. HISTORICAL EVENTS: As you well know, this patient had been on dialysis just several weeks and state s he had noted minimal change in his lower extremity swelling and abdominal bloating and because of some slight shortness of breath without accompanying chest pain, elected to be evaluated at [facility] Room. He remains mildly uncomfortable with his abdominal distention and again denies substernal chest pain, radiating neck, arm or jaw discomfort. His legs have been tight and swollen but denies calf pain at rest. He has had no nausea, vomiting and has noted a reduction in h is urinary flow without dysuria, flank pain, fever or chills. PAST MEDICAL HISTORY: Includes: 1. Hyperlipidemia. 2. 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 3. History of bipolar disorder. 4. History of diabetes, presently controlled on medication. 5. History of anemia of chronic disease. 6. Hypertension. 7. End-stage renal disease thought secondary to hypertensive nephrosclerosis and diabetic nephropat hy. PRESENT MEDICATIONS: Include: 1. Tylenol. 2. Atorvastatin 40 mg per day. 3. Doxycycline. 4. Lasix having been given 1 dose of the same. 5. Metoprolol XL 25 mg. 6. Nitropatch. PHYSICAL EXAMINATION: VITAL SIGNS: BP 155/87, heart rate 100, respirations were 18. He was afebrile. EYES: Extraocular muscles were full. NECK: HJR was present. CHEST: Reduced breath sounds. HEART: Rhythm irregular, I/ systolic murmur. No third or fourth sound. ABDOMEN: Nontender, distended. Organomegaly was not appreciated. No masses. EXTREMITIES: 1+ edema, no calf tenderness. IMPRESSION: 1. Evidence of mild volume overload and chest x-ray supports congestive heart failure that is prese nt. 2. Chronic renal failure. 3. Anemia secondary to #2. PLAN: Dialyze today and will follow with you. Dictated By: SHANE ORELLANA/NTS Conf#: [id number] DID#: [id number]
[2016-10-29] MEDS: MULTIVIT/CA CARB/B CMPLX/FA TAB PO SCH (10:42)
--- NOTE | 2016-10-29 11:02 | HP ---
DATE OF ADMISSION: 10/28/2016 CHIEF COMPLAINT: Increasing leg swelling, abdominal distention and mild shortness of breath increas ing over the last few weeks. HISTORY OF PRESENT ILLNESS: The patient is a 60-year-old -[place] male with end-stage renal disease, recently started dialysis approximately 3+ weeks ago who noted increasing lower extremity edema and abdominal distention despite 3 times a week dialysis. The patient also developed some mil d shortness of breath and mild cough which are worse lying down. Denies any chest pains. Mild abdo abad bloating but no diarrhea, no bright red blood per rectum, melena or abdominal pain. Patient a lso denies any fever, chills, night sweats, congestion, rhinorrhea, sore throat, myalgias. The aldair ent presented to the ER last night and found to be fluid overloaded and admitted for further managem ent. PAST MEDICAL HISTORY: End-stage renal disease, hypertension, anemia, history of diabetes, bipolar d isorder, schizophrenia, hyperlipidemia, rosacea, nasal allergies, BPH and glaucoma. OPERATIONS: AV fistula, bilateral mastectomies. MEDICATIONS: 1. Nifedipine 60 mg b.i.d. 2. Lopressor 50 mg daily. 3. Atrovent 100 mg b.i.d. 4. Lipitor 40 mg daily. 5. Doxycycline 100 mg b.i.d. 6. Combigan eyedrops b.i.d. 7. Pred Forte eyedrops once a day. ALLERGIES: THE PATIENT HAS NO KNOWN DRUG ALLERGIES. SOCIAL HISTORY: No tobacco in over 25 years, prior 9-pack-year history. No alcohol use. 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 FAMILY HISTORY: The patient's father in his 50s from alcoholism. Mother and 3 brothers ar e alive and well. The patient has 3 sisters, 2 with diabetes, 1 is alive and well. REVIEW OF SYSTEMS: GENERAL: The patient denies any fever, chills, night sweats, or other general complaints. HEENT: Denies any congestion, rhinorrhea, sore throat, headache, or other HEENT complaints. RESPIRATORY: As noted in HPI. CARDIOVASCULAR: As noted in HPI. GASTROINTESTINAL: As noted in HPI. GENITOURINARY: The patient denies any dysuria, frequency, or other symptoms. NEUROLOGIC: The patient with occasional mild tingling in the fingers, but no focal weakness, or oth er neurologic symptoms. PHYSICAL EXAMINATION: VITAL SIGNS: Temperature 98.2, pulse 82, blood pressure 155/87, pulse oximetry 94% on room air. GENERAL APPEARANCE: This is a well-developed, well-nourished -[place]ian male in no acute dist ress. He appears nontoxic. HEENT: Normocephalic, atraumatic. Sclerae anicteric. Oropharynx is clear. NECK: Supple, no adenopathy, no bruits. There is a positive hepatojugular reflux. LUNGS: There is some mild diffuse decreased air entry. CARDIAC: Regular rate and rhythm. ABDOMEN: Bowel sounds are present. ABDOMEN: Slightly distended, soft, nontender. EXTREMITIES: Without cyanosis or clubbing. There is moderate edema bilateral lower extremities. NEUROLOGIC: The patient is alert and oriented x3 with no focal neurologic findings. DATA: White count 8.4, hemoglobin 10.7, platelets 306. Sodium 141, potassium 4.2, chloride 99, bic arbonate 27, BUN 48, creatinine 6.72, glucose 112, AST 55, ALT 36, troponin 0.013. BNP . INR 0.88, PTT 31.6. Chest x-ray shows pulmonary vascular congestion. EKG, reportedly no evidence of is chemia. Lower extremity duplex scan negative for DVT. IMPRESSION: 1. Fluid overload with mild CHF. 2. End-stage renal disease. 3. Hypertension. 4. Anemia. 5. History of diabetes. PLAN: Admit to med/surg, renal consult appreciated. Dialysis as per renal. Continue outpatient me ds, monitor labs. Dictated By: TAMMY SNA/MONTSERRAT Conf#: [id number] DID#: [id number]
[2016-10-29] MEDS ORDERED: METOPROLOL (XL) 25 MG TAB PO ONE (16:00)
[2016-10-29] MEDS ORDERED: EPOETIN 10000 UNITS/1 ML INJ (ESRD) SC SCH (17:00)
[2016-10-29] MEDS: ATORVASTATIN 40 MG TAB PO SCH (22:16)
[2016-10-30] VITALS (12 sets, daily range): BP systolic 134–189; BP diastolic 72–98; PULSE 65–82; RESP 18–20
[2016-10-30 05:06] LABS: ADD SCAN DIFF NO
[2016-10-30 05:08] LABS: BASOPHIL # 0.1 10^3/ul (0.0-0.1); BASOPHILS % 0.7 % (0.0-2.0); EOSINOPHILS # 0.2 10^3/ul (0.0-0.5); EOSINOPHILS % 2.5 % (0.0-7.0); HEMOGLOBIN 9.5 g/dl (14.0-18.0); LYMPHOCYTES # 2.1 10^3/ul (0.8-2.9); LYMPHOCYTES % 27.6 % (15.0-51.0); MEAN CORPUSCULAR HEMOGLOBIN 27.6 pg (29.0-33.0); MEAN CORPUSCULAR HGB CONC 30.6 g/dl (32.0-37.0); MEAN CORPUSCULAR VOLUME 90.1 fl (82.0-101.0); MEAN PLATELET VOLUME 10.3 fl (7.4-10.4); MONOCYTE # 0.9 10^3/ul (0.3-0.9); MONOCYTES % 11.8 % (0.0-11.0); NEUTROPHIL # 4.3 10^3/ul (1.6-7.5); NEUTROPHILS % 56.7 % (39.0-77.0); PLATELET COUNT 248 10^3/UL (140-415); RED BLOOD COUNT 3.44 10^6/ul (4.70-6.10); WHITE BLOOD COUNT 7.6 10^3/ul (4.8-10.8)
[2016-10-30 05:24] LABS: IRON 35 ug/dl (35-150)
[2016-10-30 05:26] LABS: CALCIUM 7.8 mg/dl (8.4-10.2); CREATININE 5.69 mg/dl (0.61-1.24); PHOSPHORUS 4.9 mg/dl (2.5-4.9); POTASSIUM 3.8 mmol/L (3.5-5.1)
[2016-10-30 05:34] LABS: TOTAL IRON BINDING CAPACITY 221 ug/dl (241-421)
--- NOTE | 2016-10-30 08:08 | CONS ---
Date/Time of Note Date/Time of Note DATE: 10/30/16 TIME: 08:04 Assessment/Plan Assessment/Plan Problems: (1) ESRD on dialysis Comment: well tolerated... for repeat HD today...?d/c post? (2) CHF (congestive heart failure) Status: Acute Comment: improved w fluid removal... Echo 09/29 w nl LVEF... more UF today w HD... RA sats 98%,,, comfortable laying flat (3) Anemia in chronic kidney disease Comment: add IV Fe... is on EPO (4) HTN (hypertension) Comment: improving w fluid removal Consultation Date/Type/Reason Admit Date/Time October 28, 2016 at 23:33 Initial Consult Date Type of Consultation: neph 24 HR Interval Summary Free Text/Dictation feels better... no cp or SOB.. less edema Exam/Review of Systems Vital Signs Vitals Vital Signs Date Time Temp Pulse Resp B/P Pulse Ox O2 Delivery O2 Flow Rate FiO2 10/30/16 00:13 80 20 158/88 98 10/29/16 20:03 98.6 10/29/16 01:20 Room Air Intake and Output 10/29/16 10/29/16 10/30/16 15:00 23:00 07:00 Intake Total 500 ml 800 ml 1150 ml Output Total 4500 ml 500 ml 650 ml Balance -4000 ml 300 ml 500 ml Exam Constitutional: alert, oriented Psych: no complaints Respiratory: clear to auscultation Cardiovascular: regular rate and rhythm Gastrointestinal: nl liver, spleen, soft Extremities: normal pulses (tr LE edema) Results Result Diagram: 10/30/16 0430 10/30/16 0430 Results 24 hrs Laboratory Tests Test 10/30/16 04:30 White Blood Count 7.6 Red Blood Count 3.44 L Hemoglobin 9.5 L Hematocrit 31.0 L Mean Corpuscular Volume 90.1 Mean Corpuscular Hemoglobin 27.6 L Mean Corpuscular Hemoglobin Concent 30.6 L Red Cell Distribution Width 15.0 H Platelet Count 248 Mean Platelet Volume 10.3 Neutrophils % 56.7 Lymphocytes % 27.6 Monocytes % 11.8 H Eosinophils % 2.5 Basophils % 0.7 Nucleated Red Blood Cells % 0.0 Neutrophils # 4.3 Lymphocytes # 2.1 Monocytes # 0.9 Eosinophils # 0.2 Basophils # 0.1 Nucleated Red Blood Cells # 0.0 Sodium Level 138 Potassium Level 3.8 Chloride Level 106 Carbon Dioxide Level 25 Anion Gap 11 Blood Urea Nitrogen 30 #H Creatinine 5.69 H Glucose Level 101 # Calcium Level 7.8 L Phosphorus Level 4.9 Iron Level 35 Total Iron Binding Capacity 221 L Percent Iron Saturation 16 L Ferritin 367.0 H Medications Medications Current Medications Atorvastatin Calcium (Lipitor) 40 mg QHS PO Last administered on 10/29/16 22: 16; Admin Dose 40 MG; Start 10/29/16 at 21:00 Brimonidine/ Timolol (Combigan Oph) 1 drop BID BOTH EYES Last administered on 22:20; Admin Dose 1 DROP; Start 10/29/16 at 09:00 Doxycycline Hyclate (Vibramycin) 100 mg DAILY PO Last administered on 08:13; Admin Dose 100 MG; Start 10/29/16 at 09:00 Hydralazine HCl (Apresoline) 100 mg BID PO Last administered on 10/29/16 22:17 ; Admin Dose 100 MG; Start 10/29/16 at 09:00 Metoprolol Succinate (Toprol Xl) 25 mg DAILY PO Last administered on 10/29/16 22:18; Admin Dose 25 MG; Start 10/29/16 at 09:00 Epoetin Cecil (Epogen (Esrd)) 10,000 units MoWeFr@17 SC Last administered on 16:10; Admin Dose 10,000 UNITS; Start 10/29/16 at 17:00 Multivit/Ca Carb/ B Cmplx/FA/Prenat ([place]) 1 tab DAILY PO Last administered on 10/29/16 10:42; Admin Dose 1 TAB; Start 10/29/16 at 10:00 Clonidine 0.1 mg 0.1 mg Q12H PRN PO ELEVATED SYSTOLIC BP Last administered on 05:50; Admin Dose 0.1 MG; Start 10/29/16 at 19:30 Ferric Sodium Gluconate Complex/ Sodium Chloride (Ferrlecit/NS) 110 ml @ 110 mls/hr Q24H IVPB ; Start 10/30/16 at 08:00; Stop 11/03/16 at 08:59; Status BRIAN THORNE MD October 30, 2016 08:08
[2016-10-30] MEDS: METOPROLOL (XL) 25 MG TAB PO SCH ×2 (09:00→10:58)
[2016-10-30] MEDS: DOXYCYCLINE 100 MG TAB PO SCH (09:31)
[2016-10-30] MEDS: BRIMONIDINE 0.2%-TIMOLOL 0.5% 5ML OPH BOTH EYES SCH ×2 (09:32→20:22)
[2016-10-30] MEDS: MULTIVIT/CA CARB/B CMPLX/FA TAB PO SCH (09:32)
[2016-10-30] MEDS ORDERED: SOD FERRIC GLUC COMPLX 125 MG in SOD CHLORIDE 0.9% 100 ML IVPB SCH (11:00)
--- NOTE | 2016-10-30 13:29 | PN ---
Date/Time of Note Date/Time of Note DATE: 10/30/16 TIME: 13:26 Assessment/Plan VTE Prophylaxis VTE Prophylaxis Intervention: other Lines/Catheters IV Catheter Type (from Nrs): Saline Lock Urinary Cath still in place: No Assessment/Plan Assessment/Plan A: CHF esrd on dialysis HTN anemia P: dialysis per renal cards eval cont current rx add pred forte monitor labs Subjective 24 Hr Interval Summary Free Text/Dictation Pt feeling better, dialysis yesterday. BPs up as meds held yest prior to dialysis. Eye feels irritated, not getting his pred forte. Exam/Review of Systems Vital Signs Vitals Vital Signs Date Time Temp Pulse Resp B/P Pulse Ox O2 Delivery O2 Flow Rate FiO2 10/30/16 10:05 66 16 10/30/16 08:31 98.0 169/98 98 10/29/16 01:20 Room Air Intake and Output 10/29/16 10/29/16 10/30/16 15:00 23:00 07:00 Intake Total 500 ml 800 ml 1150 ml Output Total 4500 ml 500 ml 650 ml Balance -4000 ml 300 ml 500 ml Exam gen- nad, nontoxic. lungs- CTA heart- regular rate and rhythm abd- +BS, nontender, less distended ext- decreased edema Results Result Diagram: 10/30/16 0430 10/30/16 0430 Results 24 hrs Laboratory Tests Test 10/30/16 04:30 White Blood Count 7.6 Red Blood Count 3.44 L Hemoglobin 9.5 L Hematocrit 31.0 L Mean Corpuscular Volume 90.1 Mean Corpuscular Hemoglobin 27.6 L Mean Corpuscular Hemoglobin Concent 30.6 L Red Cell Distribution Width 15.0 H Platelet Count 248 Mean Platelet Volume 10.3 Neutrophils % 56.7 Lymphocytes % 27.6 Monocytes % 11.8 H Eosinophils % 2.5 Basophils % 0.7 Nucleated Red Blood Cells % 0.0 Neutrophils # 4.3 Lymphocytes # 2.1 Monocytes # 0.9 Eosinophils # 0.2 Basophils # 0.1 Nucleated Red Blood Cells # 0.0 Sodium Level 138 Potassium Level 3.8 Chloride Level 106 Carbon Dioxide Level 25 Anion Gap 11 Blood Urea Nitrogen 30 #H Creatinine 5.69 H Glucose Level 101 # Calcium Level 7.8 L Phosphorus Level 4.9 Iron Level 35 Total Iron Binding Capacity 221 L Percent Iron Saturation 16 L Ferritin 367.0 H Medications Medications Current Medications Atorvastatin Calcium (Lipitor) 40 mg QHS PO Last administered on 10/29/16 22: 16; Admin Dose 40 MG; Start 10/29/16 at 21:00 Brimonidine/ Timolol (Combigan Oph) 1 drop BID BOTH EYES Last administered on 09:32; Admin Dose 1 DROP; Start 10/29/16 at 09:00 Doxycycline Hyclate (Vibramycin) 100 mg DAILY PO Last administered on 09:31; Admin Dose 100 MG; Start 10/29/16 at 09:00 Hydralazine HCl (Apresoline) 100 mg BID PO Last administered on 10/30/16 10:58 ; Admin Dose 100 MG; Start 10/29/16 at 09:00 Metoprolol Succinate (Toprol Xl) 25 mg DAILY PO Last administered on 10/30/16 10:58; Admin Dose 25 MG; Start 10/29/16 at 09:00 Epoetin Cecil (Epogen (Esrd)) 10,000 units MoWeFr@17 SC Last administered on 16:10; Admin Dose 10,000 UNITS; Start 10/29/16 at 17:00 Multivit/Ca Carb/ B Cmplx/FA/Prenat ([place]) 1 tab DAILY PO Last administered on 10/30/16 09:32; Admin Dose 1 TAB; Start 10/29/16 at 10:00 Clonidine 0.1 mg 0.1 mg Q12H PRN PO ELEVATED SYSTOLIC BP Last administered on 05:50; Admin Dose 0.1 MG; Start 10/29/16 at 19:30 Ferric Sodium Gluconate Complex/ Sodium Chloride (Ferrlecit/NS) 110 ml @ 110 mls/hr Q24H IVPB Last administered on 10/30/16 10:58; Admin Dose 110 MLS/HR; Start 10/30/16 at 11:00; Stop 11/03/16 at 11:59 TAMMY TALLEY MD October 30, 2016 13:29
[2016-10-30] MEDS: PREDNISOLONE ACET 1% 5 ML OPH BOTH EYES SCH (14:26)
--- NOTE | 2016-10-30 17:38 | CONS ---
Date/Time of Note Date/Time of Note DATE: 10/30/16 TIME: 17:38 Assessment/Plan Assessment/Plan Chief Complaint/Hosp Course Impression: Edema/orthopnea/dyspnea- Pt does have uncontrolled htn as well with LVH/stage I LV diastolic dysfunction. likely with acute on chronic lv diastolic heart failure due to fluid overload due to renal failure. nephropathy/ hypoalbuminemia may be contributing as well. Uncontrolled HTN- severe elevation, likely contributing to above. ESRD on iHD- tolerating, AVF maturing HLD- on statin Recommendations: - cont fluid mgmt with neg fluid balance on iHD - would benefit from improved bp control. agree with hydralazine, titrate as tolerated. agree with bb, can consider switching to carvedilol if bp does not improve - consider ccb - unable to add acei/arb/neisha fady given renal failure - clonidine may be option as well, watch for rebound. - no further cardiac testing needed at this time, if still sob despite bp control, fluid removal can consider stress testing. can be done ase outpt Problems: Consultation Date/Type/Reason Admit Date/Time October 28, 2016 at 23:33 Date of Consultation: October 30, 2016 Type of Consultation: Cardiology Reason for Consultation Edema, HTN Referring Provider: TAMMY TALLEY MD Hx of Present Illness Mr. Dumont is a 60 y.o. with h/o of Hypertension, ESRD with nephropathy now on iHD, HLD, Dm2 admitted for edema, abd bloating. Pt recenting started on iHD a few weeks ago and reports cont edema, bloating, sob with exertion despite iHD. Pt stats e has sob with increase exertion, but also when laying down flat. no pnd. has ble edema of legs. no weaping. no n/v, early satiety. no chest pain/ pressure. pt admitted now to [facility] [place], has had extra iHD with improvement in symptoms. bp has been running high, he states it is controlled at home. recent echo reviewed- showed normal lvef, moderate LVH with stage I LV diastolic dysfunction, mild pulm htn. EKG reviewed- NSR, LVH CXR reviewed from admission- mild vascular congestions Constitutional: no complaints Eyes: no complaints ENT: no complaints Respiratory: shortness of breath Cardiovascular: orthopenea Gastrointestinal: no complaints Musculoskeletal: no complaints Skin: no complaints Neurologic: no complaints Psychological: no complaints Past Medical History PMH DM2 HTN HLD Biploar Schizophrenia Seizure BPH ESRD iHD SYncope Past Surgical History AVF bilateral mastectomy Family History Significant Family History: other (father + CAD) Social History Alcohol Use: none Smoking Status: Former smoker Drug Use: none Exam/Review of Systems Vital Signs Vitals Vital Signs Date Time Temp Pulse Resp B/P Pulse Ox O2 Delivery O2 Flow Rate FiO2 10/30/16 10:05 66 16 10/30/16 08:31 98.0 169/98 98 10/29/16 01:20 Room Air Intake and Output 10/29/16 10/29/16 10/30/16 14:59 22:59 06:59 Intake Total 500 ml 800 ml 1150 ml Output Total 4500 ml 500 ml 650 ml Balance -4000 ml 300 ml 500 ml Exam Constitutional: alert, oriented Psych: nl mood/affect, no complaints Head: atraumatic, normocephalic Eyes: nl conjunctiva ENMT: mucosa pink and moist, other (rhinophyma+) Neck: non-tender, supple, No jvd Respiratory: clear to auscultation, normal air movement, other (r chest ihd cath) Cardiovascular: edema (1+ ble), nl pulses, other (L avf, + thrill/bruit), regular rate and rhythm, systolic murmur, No S3, No S4, No irregular rhythm Gastrointestinal: non-tender, soft Musculoskeletal: nl extremities to inspection, nl gait and stance Extremities: normal pulses 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, nl mental status, nl speech, nl strength Results Result Diagram: 10/30/16 0430 10/30/16 0430 Results 24 hrs Laboratory Tests Test 10/30/16 04:30 White Blood Count 7.6 Red Blood Count 3.44 L Hemoglobin 9.5 L Hematocrit 31.0 L Mean Corpuscular Volume 90.1 Mean Corpuscular Hemoglobin 27.6 L Mean Corpuscular Hemoglobin Concent 30.6 L Red Cell Distribution Width 15.0 H Platelet Count 248 Mean Platelet Volume 10.3 Neutrophils % 56.7 Lymphocytes % 27.6 Monocytes % 11.8 H Eosinophils % 2.5 Basophils % 0.7 Nucleated Red Blood Cells % 0.0 Neutrophils # 4.3 Lymphocytes # 2.1 Monocytes # 0.9 Eosinophils # 0.2 Basophils # 0.1 Nucleated Red Blood Cells # 0.0 Sodium Level 138 Potassium Level 3.8 Chloride Level 106 Carbon Dioxide Level 25 Anion Gap 11 Blood Urea Nitrogen 30 #H Creatinine 5.69 H Glucose Level 101 # Calcium Level 7.8 L Phosphorus Level 4.9 Iron Level 35 Total Iron Binding Capacity 221 L Percent Iron Saturation 16 L Ferritin 367.0 H Medications Medications Current Medications Atorvastatin Calcium (Lipitor) 40 mg QHS PO Last administered on 10/29/16 22: 16; Admin Dose 40 MG; Start 10/29/16 at 21:00 Brimonidine/ Timolol (Combigan Oph) 1 drop BID BOTH EYES Last administered on 09:32; Admin Dose 1 DROP; Start 10/29/16 at 09:00 Doxycycline Hyclate (Vibramycin) 100 mg DAILY PO Last administered on 09:31; Admin Dose 100 MG; Start 10/29/16 at 09:00 Hydralazine HCl (Apresoline) 100 mg BID PO Last administered on 10/30/16 10:58 ; Admin Dose 100 MG; Start 10/29/16 at 09:00 Metoprolol Succinate (Toprol Xl) 25 mg DAILY PO Last administered on 10/30/16 10:58; Admin Dose 25 MG; Start 10/29/16 at 09:00 Epoetin Cecil (Epogen (Esrd)) 10,000 units MoWeFr@17 SC Last administered on 16:10; Admin Dose 10,000 UNITS; Start 10/29/16 at 17:00 Multivit/Ca Carb/ B Cmplx/FA/Prenat (Lisseth-[place]) 1 tab DAILY PO Last administered on 10/30/16 09:32; Admin Dose 1 TAB; Start 10/29/16 at 10:00 Clonidine 0.1 mg 0.1 mg Q12H PRN PO ELEVATED SYSTOLIC BP Last administered on 05:50; Admin Dose 0.1 MG; Start 10/29/16 at 19:30 Ferric Sodium Gluconate Complex/ Sodium Chloride (Ferrlecit/NS) 110 ml @ 110 mls/hr Q24H IVPB Last administered on 10/30/16 10:58; Admin Dose 110 MLS/HR; Start 10/30/16 at 11:00; Stop 11/03/16 at 11:59 Prednisolone Acetate (Pred-Forte 1%) 1 drop DAILY BOTH EYES Last administered on 10/30/16t 14:26; Admin Dose 1 DROP; Start 10/30/16 at 13:30 Procedures Procedures as per hpi DANYEL MCCLURE October 30, 2016 17:38
[2016-10-30] MEDS: ATORVASTATIN 40 MG TAB PO SCH (20:21)
[2016-10-31 05:15] LABS: ADD SCAN DIFF NO
[2016-10-31 05:21] LABS: BASOPHILS % 0.3 % (0.0-2.0); EOSINOPHILS # 0.2 10^3/ul (0.0-0.5); EOSINOPHILS % 2.3 % (0.0-7.0); HEMATOCRIT 31.6 % (42.0-52.0); HEMOGLOBIN 9.8 g/dl (14.0-18.0); LYMPHOCYTES # 2.1 10^3/ul (0.8-2.9); LYMPHOCYTES % 24.5 % (15.0-51.0); MEAN CORPUSCULAR HEMOGLOBIN 27.5 pg (29.0-33.0); MEAN CORPUSCULAR VOLUME 88.5 fl (82.0-101.0); MEAN PLATELET VOLUME 10.2 fl (7.4-10.4); MONOCYTES % 11.5 % (0.0-11.0); NEUTROPHIL # 5.2 10^3/ul (1.6-7.5); NEUTROPHILS % 60.8 % (39.0-77.0); PLATELET COUNT 238 10^3/UL (140-415); RED BLOOD COUNT 3.57 10^6/ul (4.70-6.10); RED CELL DISTRIBUTION WIDTH 14.7 % (11.5-14.5); WHITE BLOOD COUNT 8.6 10^3/ul (4.8-10.8)
[2016-10-31 05:41] LABS: POTASSIUM 3.7 mmol/L (3.5-5.1)
[2016-10-31 05:43] LABS: CREATININE 6.36 mg/dl (0.61-1.24)
[2016-10-31 05:44] LABS: CALCIUM 7.9 mg/dl (8.4-10.2)
[2016-10-31 07:00] VITALS: BP 215/101; RESP 20
[2016-10-31] MEDS: METOPROLOL (XL) 25 MG TAB PO SCH (07:37)
--- NOTE | 2016-10-31 07:38 | CONS ---
Date/Time of Note Date/Time of Note DATE: 10/31/16 TIME: 07:34 Assessment/Plan Assessment/Plan Additional Assessment/Plan 1. CHF/Volume overload resolved. 2. ESRD, with next OP dialysis rx Thursday (Ok to dc per IM) 3. HBP, if persists will need to add adalat or equivalent, pt indicates BP at home is better on same regimen 4. Anemia is stable Consultation Date/Type/Reason Admit Date/Time October 28, 2016 at 23:33 Initial Consult Date Type of Consultation: neph Detailed Summary Respiratory: No cough, No shortness of breath Cardiovascular: chest pain Gastrointestinal: no complaints, other (and feels less bloated) Genitourinary: no complaints Exam/Review of Systems Vital Signs Vitals Vital Signs Date Time Temp Pulse Resp B/P Pulse Ox O2 Delivery O2 Flow Rate FiO2 10/30/16 23:32 18 180/93 96 10/30/16 19:53 98.6 77 10/29/16 01:20 Room Air Intake and Output 10/30/16 10/30/16 10/31/16 15:00 23:00 07:00 Intake Total 600 ml 680 ml 1150 ml Output Total 4500 ml 450 ml Balance -3900 ml 680 ml 700 ml Exam Neck: No jvd Respiratory: clear to auscultation Cardiovascular: regular rate and rhythm Gastrointestinal: soft Extremities: No edema (and no calf tend) Results Result Diagram: 10/31/16 0430 10/31/16 0430 Results 24 hrs Laboratory Tests Test 10/31/16 04:30 White Blood Count 8.6 Red Blood Count 3.57 L Hemoglobin 9.8 L Hematocrit 31.6 L Mean Corpuscular Volume 88.5 Mean Corpuscular Hemoglobin 27.5 L Mean Corpuscular Hemoglobin Concent 31.0 L Red Cell Distribution Width 14.7 H Platelet Count 238 Mean Platelet Volume 10.2 Neutrophils % 60.8 Lymphocytes % 24.5 Monocytes % 11.5 H Eosinophils % 2.3 Basophils % 0.3 Nucleated Red Blood Cells % 0.0 Neutrophils # 5.2 Lymphocytes # 2.1 Monocytes # 1.0 H Eosinophils # 0.2 Basophils # 0.0 Nucleated Red Blood Cells # 0.0 Sodium Level 137 Potassium Level 3.7 Chloride Level 100 Carbon Dioxide Level 25 Anion Gap 16 Blood Urea Nitrogen 34 H Creatinine 6.36 H Glucose Level 109 Calcium Level 7.9 L Medications Medications Current Medications Atorvastatin Calcium (Lipitor) 40 mg QHS PO Last administered on 10/30/16 20: 21; Admin Dose 40 MG; Start 10/29/16 at 21:00 Brimonidine/ Timolol (Combigan Oph) 1 drop BID BOTH EYES Last administered on 20:22; Admin Dose 1 DROP; Start 10/29/16 at 09:00 Doxycycline Hyclate (Vibramycin) 100 mg DAILY PO Last administered on 09:31; Admin Dose 100 MG; Start 10/29/16 at 09:00 Hydralazine HCl (Apresoline) 100 mg BID PO Last administered on 10/30/16 20:21 ; Admin Dose 100 MG; Start 10/29/16 at 09:00 Metoprolol Succinate (Toprol Xl) 25 mg DAILY PO Last administered on 10/30/16 10:58; Admin Dose 25 MG; Start 10/29/16 at 09:00 Epoetin Cecil (Epogen (Esrd)) 10,000 units MoWeFr@17 SC Last administered on 16:10; Admin Dose 10,000 UNITS; Start 10/29/16 at 17:00 Multivit/Ca Carb/ B Cmplx/FA/Prenat (Liss[place]) 1 tab DAILY PO Last administered on 10/30/16 09:32; Admin Dose 1 TAB; Start 10/29/16 at 10:00 Clonidine 0.1 mg 0.1 mg Q12H PRN PO ELEVATED SYSTOLIC BP Last administered on 04:47; Admin Dose 0.1 MG; Start 10/29/16 at 19:30 Ferric Sodium Gluconate Complex/ Sodium Chloride (Ferrlecit/NS) 110 ml @ 110 mls/hr Q24H IVPB Last administered on 10/30/16 10:58; Admin Dose 110 MLS/HR; Start 10/30/16 at 11:00; Stop 11/03/16 at 11:59 Prednisolone Acetate (Pred-Forte 1%) 1 drop DAILY BOTH EYES Last administered on 10/30/16 14:26; Admin Dose 1 DROP; Start 10/30/16 at 13:30 SHANE WOOD MD October 31, 2016 07:38
[2016-10-31] MEDS: BRIMONIDINE 0.2%-TIMOLOL 0.5% 5ML OPH BOTH EYES SCH (09:00)
[2016-10-31] MEDS: PREDNISOLONE ACET 1% 5 ML OPH BOTH EYES SCH (09:00)
[2016-10-31] MEDS: MULTIVIT/CA CARB/B CMPLX/FA TAB PO SCH (09:00)
[2016-10-31] MEDS: DOXYCYCLINE 100 MG TAB PO SCH (09:00)
[2016-10-31 09:11] VITALS: BP 173/93; PULSE 81
--- NOTE | 2016-10-31 15:56 | CONS ---
Date/Time of Note Date/Time of Note DATE: 10/31/16 TIME: 15:54 Assessment/Plan Assessment/Plan Chief Complaint/Hosp Course Impression: Edema/orthopnea/dyspnea- Pt does have uncontrolled htn as well with LVH/stage I LV diastolic dysfunction. likely with acute on chronic lv diastolic heart failure due to fluid overload due to renal failure. nephropathy/ hypoalbuminemia may be contributing as well. Uncontrolled HTN- severe elevation, likely contributing to above. ESRD on iHD- tolerating, AVF maturing HLD- on statin Recommendations: - cont fluid mgmt with neg fluid balance on iHD - would benefit from improved bp control. agree with hydralazine, titrate as tolerated. agree with bb, can consider switching to carvedilol if bp does not improve - consider ccb - unable to add acei/arb/neisha fady given renal failure - clonidine may be option as well, watch for rebound. - no further cardiac testing needed at this time, if still sob despite bp control, fluid removal can consider stress testing. can be done ase outpt Problems: Consultation Date/Type/Reason Admit Date/Time October 28, 2016 at 23:33 Initial Consult Date Type of Consultation: Cardiology Referring Provider: TAMMY TALLEY MD 24 HR Interval Summary Free Text/Dictation no acute events. sob/orthopnea improved. no cp/palpitations. pt states bp still high Detailed Summary Respiratory: no complaints Cardiovascular: no complaints Gastrointestinal: no complaints Exam/Review of Systems Vital Signs Vitals Vital Signs Date Time Temp Pulse Resp B/P Pulse Ox O2 Delivery O2 Flow Rate FiO2 10/31/16 09:11 81 173/93 10/31/16 07:00 98.2 20 98 10/29/16 01:20 Room Air Intake and Output 10/30/16 10/30/16 10/31/16 15:00 23:00 07:00 Intake Total 600 ml 680 ml 1150 ml Output Total 4500 ml 450 ml Balance -3900 ml 680 ml 700 ml Exam Constitutional: alert, oriented Psych: nl mood/affect, no complaints Head: normocephalic Eyes: nl conjunctiva ENMT: other (+rhinophyma) Neck: non-tender, supple, No jvd Respiratory: clear to auscultation, normal air movement Cardiovascular: S4, nl pulses, regular rate and rhythm, systolic murmur, No S3 Gastrointestinal: non-tender, soft Musculoskeletal: nl extremities to inspection, nl gait and stance Extremities: normal pulses 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, nl mental status, nl speech, nl strength Skin: nl turgor Results Result Diagram: 10/31/1642910/31/16429 Results 24 hrs Laboratory Tests Test 10/31/16 04:30 White Blood Count 8.6 Red Blood Count 3.57 L Hemoglobin 9.8 L Hematocrit 31.6 L Mean Corpuscular Volume 88.5 Mean Corpuscular Hemoglobin 27.5 L Mean Corpuscular Hemoglobin Concent 31.0 L Red Cell Distribution Width 14.7 H Platelet Count 238 Mean Platelet Volume 10.2 Neutrophils % 60.8 Lymphocytes % 24.5 Monocytes % 11.5 H Eosinophils % 2.3 Basophils % 0.3 Nucleated Red Blood Cells % 0.0 Neutrophils # 5.2 Lymphocytes # 2.1 Monocytes # 1.0 H Eosinophils # 0.2 Basophils # 0.0 Nucleated Red Blood Cells # 0.0 Sodium Level 137 Potassium Level 3.7 Chloride Level 100 Carbon Dioxide Level 25 Anion Gap 16 Blood Urea Nitrogen 34 H Creatinine 6.36 H Glucose Level 109 Calcium Level 7.9 L DANYEL MCCLURE October 31, 2016 15:56
== END 2016-10-31 09:59 | disposition left against medical advice (07) | DRG 291 ==
LOC: E/R 17:01 → MS1 23:33
PROVIDERS: ADMIT Internal Medicine; ATTEND Internal Medicine
PROC: 5A1D00Z (ICD-10-PCS; principal; 2016-10-29)
DX: I13.2 Hypertensive heart and chronic kidney disease with heart failure and with stage 5 chronic kidney disease, or end stage renal disease (principal); N18.6 End stage renal disease; E11.21 Type 2 diabetes mellitus with diabetic nephropathy; I50.33 Acute on chronic diastolic (congestive) heart failure; E11.22 Type 2 diabetes mellitus with diabetic chronic kidney disease; E78.5 Hyperlipidemia, unspecified; D63.8 Anemia in other chronic diseases classified elsewhere; F31.9 Bipolar disorder, unspecified; D63.1 Anemia in chronic kidney disease; F20.9 Schizophrenia, unspecified; L71.9 Rosacea, unspecified; N40.0 Benign prostatic hyperplasia without lower urinary tract symptoms; H40.9 Unspecified glaucoma; E11.40 Type 2 diabetes mellitus with diabetic neuropathy, unspecified; Z79.4 Long term (current) use of insulin; Z99.2 Dependence on renal dialysis; Z90.13 Acquired absence of bilateral breasts and nipples
CPT/HCPCS: 71010; 80048; 80053; 82728; 83540; 83880; 84100; 84484; 85025; 85610; 85730; 90935; 93005; 93970; J1940; J2916; Q4081

== ENCOUNTER 2016-12-31 07:03 | Observation (INO) | payer MEDICARE, OTHER ==
[~2016-12-31] VITALS: Ht 188 cm; Wt 93.0 kg
[2016-12-31] VITALS (24 sets, daily range): BP systolic 107–133; BP diastolic 62–85; PULSE 68–80; RESP 17–19; Ht 188 cm; Wt 93.0 kg
[~2016-12-31 07:03] MED LIST changes: +CEFAZOLIN 2 GM/50 ML (PMX) 50 ML IVPB ONE; -FURO40TA4 PO; +HYDR100T7 PO; -NIFE60TA11 PO
[2016-12-31] MEDS ORDERED: NIFE60TA7 PO (07:56)
[2016-12-31] MEDS ORDERED: DOXY100T20 PO (07:57)
[2016-12-31] MEDS ORDERED: FURO40TA4 PO (07:57)
[2016-12-31] MEDS ORDERED: PRD1OP5 BOTH EYES (07:59)
[2016-12-31] MEDS ORDERED: LIDOCAINE 1% (MPF) 30 ML INJ ONE (08:29)
[2016-12-31] MEDS ORDERED: HEPARIN 1000 UNITS/ML 10 ML INJ ONE (08:29)
[2016-12-31] MEDS ORDERED: THROMBIN 5000 UNIT VIAL ONE (08:29)
[2016-12-31] MEDS ORDERED: GELATIN SIZE 100 SPONGE ONE (08:29)
[2016-12-31 08:33] LABS: INR 0.84; PROTIME 11.5 Sec (12.2-14.2); PT RATIO 0.9
[2016-12-31 08:34] LABS: PARTIAL THROMBOPLASTIN TIME 31.8 Sec (25.0-35.0)
--- NOTE | 2016-12-31 08:35 | HPN ---
Date/Time of Note Date/Time of Note DATE: 12/31/16 TIME: 08:35 Interval H&P Admission Note Pt. seen H&P reviewed: No system changes RONNIE DIAZ MD Dec 31, 2016 08:35
[2016-12-31] MEDS ORDERED: SUCCINYLCHOLINE CHLORIDE 100 MG/5 ML SYG IV ONE (08:47)
[2016-12-31] MEDS ORDERED: PROPOFOL 20 ML ONE (08:47)
[2016-12-31] MEDS ORDERED: ROCURONIUM 50 MG INJ ONE (08:47)
[2016-12-31] MEDS ORDERED: CEFAZOLIN 1 GM INJ ONE (08:47)
[2016-12-31] MEDS ORDERED: ONDANSETRON 4 MG INJ ONE (08:47)
[2016-12-31] MEDS ORDERED: FENTAnyl 50 MCG/ML VIAL ONE (08:47)
[2016-12-31] MEDS ORDERED: BUPIVACAINE 0.5% (SDV) 30 ML INJ ONE (09:20)
[2016-12-31] MEDS ORDERED: FENTAnyl 50 MCG/ML VIAL IV PRN ×2 (09:30)
[2016-12-31] MEDS ORDERED: MEPERIDINE 25 MG INJ IV PRN (09:30)
[2016-12-31] MEDS ORDERED: HYDROmorphONE (0.2 MG/ML) 10ML SYG IV PRN ×3 (09:30)
[2016-12-31] MEDS ORDERED: hydrALAzine 20 MG INJ IV PRN (09:30)
[2016-12-31] MEDS ORDERED: LABETALOL HCL 20MG INJ IV PRN (09:30)
[2016-12-31] MEDS ORDERED: ONDANSETRON 4 MG INJ IV PRN ×2 (09:30→13:00)
--- NOTE | 2016-12-31 12:19 | OPR ---
Date/Time of Note Date/Time of Note DATE: 12/31/16 TIME: 12:17 Operative Report Free Text/Dictation DATE OF OPERATION: 12/31/2016 SURGEON: Carlos Diaz MD PREOPERATIVE DIAGNOSIS: End-stage renal disease POSTOPERATIVE DIAGNOSIS: Same PROCEDURE: 1. Left arm brachiobasilic fistula transposition 2. Modifier: Very difficult dissection and omplex wound closure was done ANESTHESIA: General COMPLICATIONS: None ESTIMATED BLOOD LOSS: 50 mL TRANSFUSIONS: None SPECIMEN: None HEPARIN: None INDICATIONS: This is a 57-year-old female with end-stage renal disease that had underwent left arm brachiobasilic fistula creation. The fistula has matured and agreed to proceed with transposition of the fistula. The risks and benefits of the procedure were discussed with the patient and not limited to , GA, stroke, pneumonia, stroke, infection, thrombosis of graft and artery, revisions of AVF, steal, nerve injury, limb loss, lymphatic leak and she elected to undergo surgical intervention. DESCRIPTION: The patient was placed in supine position on the operating room table. The arms were placed at 80 degrees. The normal bony prominences were padded. The anesthesia team had placed the appropriate lines and anesthesia was induced. Time-out performed and the appropriate site was marked and confirmed. The patient's left upper extremity prepped and draped in the usual standard sterile fashion. Preoperative antibiotics were administered prior to the skin incision. The skin along the medial aspect of the upper arm over the basilic vein was infiltrated with 1% lidocaine. A 20 cm longitudinal incision was then performed in the medial aspect of the arm. The incision was deepened down through the subcutaneous tissue, and the brachiobasilic fistula was identified at the level of the antecubital fossa. The basilic vein was encircled with a vessel loop and then dissected near the arterial anastomosis in the antecubital segment and in the region towards the anterior axillary line in the upper arm. Its branches were isolated, ligated and divided. The overlying cutaneous nerve was preserved. The brachiobasilic fistula was then dissected free from the antecubital fossa. Attention was then directed to the anterior portion of the upper arm and undermining of the subcutaneous tissue was performed. This layer enabled us to lay the basilic vein more anterolateral and easy for cannulation access. Checked for hemostasis, which was adequate. There was an excellent thrill in the vein and the vein was readily palpable under the skin. Hemostasis was then ensured. There was evidence of pulse in the radial and ulnar arteries at the wrist. The wound was closed in multilayer fashion and very complex as the patient had a very large arm. The subcutaneous layer on the medial aspect of the arm was closed in two layers with a continuous 3-0 Vicryl suture. The dermal layer was closed with interrupted 3-0 Vicryl suture. The arm being large and extensive dissection was done we also placed interrupted mattress 3-0 nylon sutures. The skin was closed with skin barb. The patient tolerated the procedure well and was transferred to the postanesthesia care unit in stable condition. All instrument, needle and sponge counts were correct 2. CARLOS DIAZ MD Dec 31, 2016 12:19
[2016-12-31] MEDS ORDERED: ACETAMINOPHEN 325 MG TAB PO PRN (13:00)
[2016-12-31] MEDS ORDERED: ZOLPIDEM 5 MG TAB PO PRN (13:00)
[2016-12-31] MEDS: METOPROLOL (XL) 25 MG TAB PO SCH (13:00)
[2016-12-31] MEDS: NIFEdipine (XL) 60 MG TAB PO SCH (13:00)
[2016-12-31] MEDS ORDERED: NACL 0.9% 3 ML SYG IV SCH (13:00)
[2016-12-31] MEDS ORDERED: HYDROCODONE/APAP (5/325) TAB PO PRN (13:00)
[2016-12-31] MEDS ORDERED: DOCUSATE SODIUM 100 MG CAP PO PRN (13:00)
[2016-12-31] MEDS: DOXYCYCLINE 100 MG TAB PO SCH (13:00)
--- NOTE | 2016-12-31 13:06 | HP ---
Date/Time of Note Date/Time of Note DATE: 12/31/16 TIME: 12:58 Assessment/Plan VTE Prophylaxis VTE Prophylaxis Intervention: other Lines/Catheters IV Catheter Type (from Nrsg): Peripheral IV Assessment/Plan Assessment/Plan 1. CKD on dialysis, to be dialyzed today, post op CBC and K ordered 2. HBP, controlled 3. Anemia, await repeat cbc re -procrit 4. Well functioning vasc access left upper extrem HPI/ROS Admit Date/Time Admit Date/Time 12/31/16 Hx of Present Illness Pt with know CRI and admitted for placement of permanent vasc access left upper extremity for continued hemodialysis. Dialysis was started approx 3-4 mos ago via PermCath. AV fistula had been placed prior but did not mature. 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) Smoking Status: Never smoker Exam/Review of Systems Vital Signs Vitals Vital Signs Date Time Temp Pulse Resp B/P Pulse Ox O2 Delivery O2 Flow Rate FiO2 12/31/16 12:49 70 17 117/73 99 Room Air 12/31/16 11:57 98.2 Intake and Output 12/30/16 12/30/16 12/31/16 15:00 23:00 07:00 Intake Total 0 ml Balance 0 ml Exam Neck: non-tender, No jvd Respiratory: clear to auscultation Cardiovascular: regular rate and rhythm Gastrointestinal: nl liver, spleen, soft Extremities: No edema (and no calf tend, good thrill and bruit left upper extrem) Labs Result Diagram: 12/31/16 0755 Medications Medications Current Medications Atorvastatin Calcium (Lipitor) 40 mg QHS PO ; Start 12/31/16 at 21:00; Status UNV Brimonidine/ Timolol (Combigan Oph) 1 drop BID BOTH EYES ; Start 12/31/16 at 21: 00; Status UNV Doxycycline Hyclate (Vibramycin) 100 mg DAILY PO ; Start 12/31/16 at 13:00 Furosemide (Lasix) 40 mg DAILY PO ; Start 01/01/17 at 09:00; Status UNV Hydralazine HCl (Apresoline) 100 mg BID PO ; Start 12/31/16 at 21:00; Status UNV Metoprolol Succinate (Toprol Xl) 25 mg DAILY PO ; Start 12/31/16 at 13:00; Status UNV Nifedipine (Procardia Xl) 60 mg DAILY PO ; Start 12/31/16 at 13:00; Status UNV Prednisolone Acetate (Pred-Forte 1%) 1 drop DAILY BOTH EYES ; Start 01/01/17 at 09:00; Status UNV SHANE WOOD MD Dec 31, 2016 13:05
[2016-12-31 13:18] LABS: ADD SCAN DIFF NO
[2016-12-31 13:28] LABS: BASOPHILS % 0.5 % (0.0-2.0); EOSINOPHILS # 0.1 10^3/ul (0.0-0.5); EOSINOPHILS % 1.5 % (0.0-7.0); HEMATOCRIT 32.3 % (42.0-52.0); HEMOGLOBIN 10.6 g/dl (14.0-18.0); LYMPHOCYTES % 24.3 % (15.0-51.0); MEAN CORPUSCULAR HEMOGLOBIN 28.5 pg (29.0-33.0); MEAN CORPUSCULAR HGB CONC 32.8 g/dl (32.0-37.0); MEAN CORPUSCULAR VOLUME 86.8 fl (82.0-101.0); MEAN PLATELET VOLUME 10.1 fl (7.4-10.4); MONOCYTE # 0.6 10^3/ul (0.3-0.9); MONOCYTES % 7.7 % (0.0-11.0); NEUTROPHIL # 5.4 10^3/ul (1.6-7.5); NEUTROPHILS % 65.1 % (39.0-77.0); PLATELET COUNT 220 10^3/UL (140-415); RED BLOOD COUNT 3.72 10^6/ul (4.70-6.10); RED CELL DISTRIBUTION WIDTH 16.2 % (11.5-14.5); WHITE BLOOD COUNT 8.2 10^3/ul (4.8-10.8)
[2016-12-31 13:38] LABS: CALCIUM 7.8 mg/dl (8.4-10.2); CREATININE 10.11 mg/dl (0.61-1.24)
[2016-12-31 13:40] LABS: POTASSIUM 5.3 mmol/L (3.5-5.1)
[2016-12-31] MEDS ORDERED: ATORVASTATIN 40 MG TAB PO SCH (21:00)
[2016-12-31] MEDS: BRIMONIDINE 0.2%-TIMOLOL 0.5% 5ML OPH BOTH EYES SCH (21:51)
[2017-01-01 02:13] VITALS: BP 138/81; RESP 18
[2017-01-01 06:06] LABS: ADD SCAN DIFF NO
[2017-01-01 06:38] LABS: BASOPHIL # 0.1 10^3/ul (0.0-0.1); BASOPHILS % 0.5 % (0.0-2.0); EOSINOPHILS # 0.1 10^3/ul (0.0-0.5); EOSINOPHILS % 1.3 % (0.0-7.0); HEMATOCRIT 35.9 % (42.0-52.0); HEMOGLOBIN 11.6 g/dl (14.0-18.0); LYMPHOCYTES # 2.5 10^3/ul (0.8-2.9); LYMPHOCYTES % 24.8 % (15.0-51.0); MEAN CORPUSCULAR HGB CONC 32.3 g/dl (32.0-37.0); MEAN CORPUSCULAR VOLUME 86.7 fl (82.0-101.0); MEAN PLATELET VOLUME 10.3 fl (7.4-10.4); MONOCYTES % 10.4 % (0.0-11.0); NEUTROPHIL # 6.3 10^3/ul (1.6-7.5); NEUTROPHILS % 62.4 % (39.0-77.0); PLATELET COUNT 235 10^3/UL (140-415); RED BLOOD COUNT 4.14 10^6/ul (4.70-6.10); RED CELL DISTRIBUTION WIDTH 16.5 % (11.5-14.5)
[2017-01-01 06:43] LABS: CALCIUM 8.3 mg/dl (8.4-10.2); CREATININE 7.68 mg/dl (0.61-1.24); PHOSPHORUS 7.6 mg/dl (2.5-4.9); POTASSIUM 4.1 mmol/L (3.5-5.1)
--- NOTE | 2017-01-01 07:54 | DS ---
Date/Time of Note Date/Time of Note DATE: 01/01/17 TIME: 07:49 Discharge Summary Admission/Discharge Info Admit Date/Time Dec 31, 2016 at 12:02 Discharge Date/Time 01/01/19 Discharge Diagnosis s/p revision LUE AVF w Basilic Transposition w dr Caceres ESRD on HD q MWF HTN anemia in CKD, maintained on outpt EPO Procedures s/p basilic tranposition LUE AVF Hx of Present Illness Pt with know CRI and admitted for placement of permanent vasc access left upper extremity for continued hemodialysis. Dialysis was started approx 3-4 mos ago via PermCath. AV fistula had been placed prior but did not mature. Hospital Course pt admitted, kept NPO, and taken to the OR, and underwent LUE basilic Transposition without complications. he then underwent HD post op, did well, and was d/c the following day in stable condition, to cont his outpt HD via the chest Permacath q MWF Home Meds Reported Medications Prednisolone Acetate* (Pred Forte*) 5 Ml Susp, 1 DROP BOTH EYES DAILY, EA 12/31/16 Furosemide* (Furosemide*) 40 Mg Tablet, 40 MG PO DAILY, TAB 12/31/16 Doxycycline Hyclate* (Doxycycline Hyclate*) 100 Mg Tablet.dr, 100 MG PO BID, TAB 12/31/16 Nifedipine* (Nifedipine ER*) 60 Mg Tablet.sa, 60 MG PO DAILY, TAB.SA 12/31/16 Hydralazine Hcl* (Hydralazine Hcl*) 100 Mg Tablet, 100 MG PO BID, #60 TAB 10/28/16 Metoprolol Succinate* (Toprol XL*) 25 Mg Tab.sr.24h, 25 MG PO DAILY, #30 TAB 09/27/16 Atorvastatin* (Atorvastatin*) 40 Mg Tablet, 40 MG PO QHS, #30 TAB 03/27/16 Brimonidine/Timolol* (Combigan*) 5 Ml Drops, 1 DROP BOTH EYES BID, BOTTLE 03/27/16 Discontinued Reported Medications Doxycycline Monohydrate* (Doxycycline Monohydrate*) 100 Mg Tablet, 100 MG PO DAILY, TAB 03/27/16 Primary Care Provider Sari Low Pending Labs Laboratory Tests Test 12/31/16 07:55 12/31/16 13:09 01/01/17 05:35 Prothrombin Time 11.5Sec (12.2-14.2) Prothrombin Time Ratio 0.9 INR International Normalized Ratio 0.84 Activated Partial Thromboplast Time 31.8Sec (25.0-35.0) Potassium Level 4.4mmol/L (3.5-5.1) 5.3mmol/L (3.5-5.1) 4.1mmol/L (3.5-5.1) White Blood Count 8.210^3/ul (4.8-10.8) 10.010^3/ul (4.8-10.8) Red Blood Count 3.7210^6/ul (4.70-6.10) 4.1410^6/ul (4.70-6.10) Hemoglobin 10.6g/dl (14.0-18.0) 11.6g/dl (14.0-18.0) Hematocrit 32.3% (42.0-52.0) 35.9% (42.0-52.0) Mean Corpuscular Volume 86.8fl (82.0-101.0) 86.7fl (82.0-101.0) Mean Corpuscular Hemoglobin 28.5pg (29.0-33.0) 28.0pg (29.0-33.0) Mean Corpuscular Hemoglobin Concent 32.8g/dl (32.0-37.0) 32.3g/dl (32.0-37.0) Red Cell Distribution Width 16.2% (11.5-14.5) 16.5% (11.5-14.5) Platelet Count 28144^3/UL (140-415) 83733^3/UL (140-415) Mean Platelet Volume 10.1fl (7.4-10.4) 10.3fl (7.4-10.4) Neutrophils % 65.1% (39.0-77.0) 62.4% (39.0-77.0) Lymphocytes % 24.3% (15.0-51.0) 24.8% (15.0-51.0) Monocytes % 7.7% (0.0-11.0) 10.4% (0.0-11.0) Eosinophils % 1.5% (0.0-7.0) 1.3% (0.0-7.0) Basophils % 0.5% (0.0-2.0) 0.5% (0.0-2.0) Nucleated Red Blood Cells % 0.0/100WBC (0.0-0.0) 0.0/100WBC (0.0-0.0) Neutrophils # 5.410^3/ul (1.6-7.5) 6.310^3/ul (1.6-7.5) Lymphocytes # 2.010^3/ul (0.8-2.9) 2.510^3/ul (0.8-2.9) Monocytes # 0.610^3/ul (0.3-0.9) 1.010^3/ul (0.3-0.9) Eosinophils # 0.110^3/ul (0.0-0.5) 0.110^3/ul (0.0-0.5) Basophils # 0.010^3/ul (0.0-0.1) 0.110^3/ul (0.0-0.1) Nucleated Red Blood Cells # 0.010^3/ul (0.0-0.0) 0.010^3/ul (0.0-0.0) Sodium Level 140mmol/L (135-144) 136mmol/L (135-144) Chloride Level 99mmol/L (97-110) 88mmol/L (97-110) Carbon Dioxide Level 26mmol/L (21-31) 28mmol/L (21-31) Anion Gap 20 (8-16) 24 (8-16) Blood Urea Nitrogen 48mg/dl (7-20) 33mg/dl (7-20) Creatinine 10.11mg/dl (0.61-1.24) 7.68mg/dl (0.61-1.24) Glucose Level 130mg/dl (70-220) 157mg/dl (70-220) Calcium Level 7.8mg/dl (8.4-10.2) 8.3mg/dl (8.4-10.2) Phosphorus Level 7.6mg/dl (2.5-4.9) BRIAN STEVENSON MD Jan 01, 2017 07:53
[2017-01-01 08:08] VITALS: BP 138/76; RESP 18
[2017-01-01] MEDS: DOXYCYCLINE 100 MG TAB PO SCH (08:38)
[2017-01-01] MEDS: METOPROLOL (XL) 25 MG TAB PO SCH (08:39)
[2017-01-01] MEDS ORDERED: PREDNISOLONE ACET 1% 5 ML OPH BOTH EYES SCH (09:00)
[2017-01-01] MEDS ORDERED: FUROSEMIDE 40 MG TAB PO SCH (09:00)
[2017-01-01 09:54] VITALS: BP 141/84; RESP 18
[2017-01-01] MEDS: BRIMONIDINE 0.2%-TIMOLOL 0.5% 5ML OPH BOTH EYES SCH (09:56)
[2017-01-01] MEDS: NIFEdipine (XL) 60 MG TAB PO SCH (09:56)
== END 2017-01-01 11:55 | disposition home or self-care (01) ==
LOC: SDS 07:03 → MS2 12:02
PROVIDERS: ADMIT Student in an Organized Health Care Education/Training Program; ATTEND Student in an Organized Health Care Education/Training Program
DX: I12.0 Hypertensive chronic kidney disease with stage 5 chronic kidney disease or end stage renal disease (principal); N18.6 End stage renal disease; Z99.2 Dependence on renal dialysis; D63.1 Anemia in chronic kidney disease
CPT/HCPCS: 36832; 80048; 84100; 84132; 85025; 85610; 85730; 86850; 86900; 86901; 90935; G0378; J0690; J1644; J2405; J3010; J7999

== ENCOUNTER 2017-01-14 15:44 | Emergency (ER) | payer MEDICARE, OTHER ==
[~2017-01-14] VITALS: Ht 188 cm; Wt 95.5 kg
[~2017-01-14 15:44] MED LIST changes: -CEFAZOLIN 2 GM/50 ML (PMX) 50 ML IVPB ONE; -DOXY-220 PO; +DOXY100T20 PO; +NIFE60TA7 PO; +PRD1OP5 BOTH EYES
[2017-01-14 15:51] VITALS: Ht 188 cm; Wt 95.5 kg
== END 2017-01-14 17:58 | disposition left against medical advice (07) ==
LOC: E/R 15:44
DX: Z53.21 Procedure and treatment not carried out due to patient leaving prior to being seen by health care provider (principal)

== ENCOUNTER 2017-07-05 11:41 | Emergency (ER) | END 2017-07-05 12:18 | disposition home or self-care (01) ==

== ENCOUNTER 2017-07-08 13:03 | Observation (INO) | END 2017-07-08 21:30 | disposition home or self-care (01) ==

== ENCOUNTER 2017-09-04 08:04 | Emergency (ER) | END 2017-09-04 12:19 | disposition home or self-care (01) ==

== ENCOUNTER 2018-10-25 13:33 | Emergency (ER) | payer MEDICARE, OTHER ==
[~2018-10-25] VITALS: Ht 188 cm; Wt 97.2 kg
[~2018-10-25 13:33] MED LIST changes: -COMBIG5 BOTH EYES; -DOXY100T20 PO; +ELBA1TAB PO; +FURO80TA3 PO; +HYDR100T25 PO; -HYDR100T7 PO; +METO-335 PO; -METO25TA7 PO; +NIFE60TA24 PO; -NIFE60TA7 PO; -PRD1OP5 BOTH EYES
[2018-10-25 13:42] VITALS: BP 172/98; PULSE 90; RESP 18; Ht 188 cm; Wt 97.2 kg
== END 2018-10-25 16:28 | disposition left against medical advice (07) ==
LOC: FTE 13:33
DX: Z53.21 Procedure and treatment not carried out due to patient leaving prior to being seen by health care provider (principal)

== ENCOUNTER 2018-12-14 06:29 | Emergency (ER) | payer MEDICARE, OTHER ==
[~2018-12-14] VITALS: Ht 188 cm; Wt 97.9 kg
[2018-12-14 06:33] VITALS: BP 177/89; PULSE 75; RESP 18; Ht 188 cm; Wt 97.9 kg
[2018-12-14] MEDS ORDERED: LIDOCAINE 1% (MPF) 5 ML VIAL INFIL ONE (07:30)
[2018-12-14] MEDS ORDERED: SULF1TAB31 PO (08:03)
[2018-12-14] MEDS ORDERED: CIPR500T4 PO (08:05)
--- NOTE | 2018-12-14 08:08 | ERD ---
ER Documentation Chief Complaint Chief Complaint Pt with c/o recurent 2 abscesses: 1 to buttom/1 to inner thigh.s/p I&D/ABX HPI 63-year-old male presents to ED for recurrent abscesses. He states that he has 2 abscesses in the perineal area. He states that 1 of them is hard and the other one is draining slightly. He states that he was treated about a month ago on October 30 with Bactrim with no relief of his symptoms. He denies any fevers or signs of systemic infection. He states that they are slightly painful. He states the pain is worse when pressed on the abscess. He states the pain is 7 out of 10 intensity at worst. He denies any radiation of the pain and states that it is a sharp pain when pressed upon. He is here asking for an incision and drainage. Past medical history is end-stage renal disease in which she is getting dialysis Thursday. He also reports history of hypertension and hyperlipidemia. ROS All systems reviewed and are negative except as per history of present illness. Medications Home Meds Active Scripts Ciprofloxacin Hcl* (Ciprofloxacin Hcl*) 500 Mg Tablet, 500 MG PO BID for 10 Days, TAB Prov:RUTH BRAGA PA-C 12/14/18 Reported Medications Elbasvir/Grazoprevir (Zepatier 50-100 mg Tablet) 1 Each Tablet, 1 EACH PO DAILY, TAB 07/08/17 Metoprolol Succinate* (Toprol XL*) 25 Mg Tab.sr.24h, 25 MG PO DAILY, #30 TAB 07/08/17 Atorvastatin* (Atorvastatin*) 40 Mg Tablet, 40 MG PO QHS, #30 TAB 07/08/17 Nifedipine* (Afeditab CR*) 60 Mg Tablet.er, 60 MG PO DAILY, #30 TAB.SA 07/08/17 Furosemide* (Furosemide*) 80 Mg Tablet, 80 MG PO DAILY, #30 TAB 07/08/17 Hydralazine Hcl* (Hydralazine Hcl*) 100 Mg Tablet, 100 MG PO Q8, #90 TAB 07/08/17 Discontinued Scripts Sulfamethoxazole/Trimethoprim* (Bactrim Ds* Tablet) 1 Each Tablet, 1 TAB PO BID, #14 TAB Prov:RUTH BRAGA PA-C 12/14/18 Allergies Allergies: Coded Allergies: risperidone (Unverified Allergy, Unknown, 07/08/17) PMhx/Soc History of Surgery: Yes ([facility] SX, DIALYSIS [facility]A LEONARDA ) Anesthesia Reaction: No Hx Neurological Disorder: No Hx Respiratory Disorders: No Hx Cardiac Disorders: Yes (HTN) Hx Psychiatric Problems: No Hx Miscellaneous Medical Probl: Yes (HEP C) Hx Alcohol Use: No Hx Substance Use: No Hx Tobacco Use: No Smoking Status: Never smoker FmHx Family History: No diabetes Physical Exam Vitals Vital Signs Date Temp Pulse Resp B/P (MAP) Pulse Ox O2 O2 Flow FiO2 Time Delivery Rate 12/14/18 98.0 75 18 177/89 95 06:33 (118) Physical Exam Const: No acute distress Head: Atraumatic Eyes: Normal Conjunctiva ENT: Normal External Ears, Nose and Mouth. Neck: Full range of motion. No meningismus. Resp: Clear to auscultation bilaterally Cardio: Regular rate and rhythm, no murmurs Abd: Soft, non tender, non distended. Normal bowel sounds Skin: 2 abscesses in the perineal region. One is fluctuant with slight discharge when squeezed. The other is hard and no discharge is expelled. Back: No midline or flank tenderness Ext: No cyanosis, or edema Neur: Awake and alert Psych: Normal Mood and Affect Results 24 hrs Current Medications Medications Dose Sig/Florencia Start Time Status Last (Trade) Ordered Route PRN Stop Time Admin Dose Reason Admin Lidocaine 5 ml ONCE ONCE 12/14/18 DC (Xylocaine INFIL 07:30 12/14/18 1% (Mpf)) 07:31 Procedures/MDM ED COURSE: The patient was stable throughout ED course. I kept the patient informed of laboratory and diagnostic imaging results throughout the ED course. PROCEDURES: Abscess Incision and Drainage with irrigation by me: Ruth Braga Location: Perineal region x 2 Anesthesia: Local 1% Lidocaine Technique: Irrigated. Disrupted loculations w/ instrumentation Packing: None Complications: Neurovascularly intact post procedure 48 hour wound check. Scar minimization instructions given. MEDICATIONS GIVEN: Lidocaine Patient tolerated medication well with no adverse reactions. Patient reported improvement in pain. MEDICAL DECISION MAKING: Patient is a 63-year-old male presenting to the ED for incision and drainage of his abscesses in his perineal area. He states that the abscesses are recurrent, come and go frequently. He was last treated on October 30 in which provider and I&D and prescribed Bactrim. He states that this did not help his symptoms. Incision and drainage was done today with some discharge being expelled out. Antibiotic dressing was placed and instructions were given to the patient to return to the ED in 2 days for wound check. Patient was discharged on antibiotics. H&P and other data no c/w emergent process. Low suspicion for anaphylaxis, syphilis, disseminated gonorrhea chlamydia, sepsis, cellulitis, necrotizing fasciitis, gangrene, meningococcemia, allergic contact dermatitis, urticaria, eczema, tinea infection, or other emergent conditions. Vital signs were reviewed. Patient is afebrile. Patient was not hypoxic. Patient was hemodynamically stable. Patient was told to follow up with primary care for further care and management. PRESCRIPTION: Ciprofloxacin DISCHARGE: At this time, patient is stable for discharge and outpatient management. I have instructed the patient to follow-up with his/her primary care physician in 1-2 days. I have discussed with the patient the possibility of needing to see a specialist for further workup and imaging studies if symptoms persist. I have in structed the patient to promptly return to the ER for any new or worsening symptoms including increased pain, fever, nausea, vomiting, weakness or LOC. The patient expressed understanding of and agreement with this plan. All questions were answered. Home care instructions were provided. Disclaimer: Inadvertent spelling and grammatical errors are likely due to EHR/dictation software use and do not reflect on the overall quality of patient care. Also, please note that the electronic time recorded on this note does not necessarily reflect the actual time of the patient encounter. Departure Diagnosis: Primary Impression: Abscess Condition: Fair Patient Instructions: Abscess, Incision And Drainage Referrals: SD HURTADO MD,RAFIQ MAYES,BLAYNE RUIZ,YULIANA FITZGERALD,JOE JOHNSON,BALJIT NICOLE,BALJIT Babb [facility] YOU HAVE RECEIVED A MEDICAL SCREENING EXAM AND THE RESULTS INDICATE THAT YOU DO NOT HAVE A CONDITION THAT REQUIRES URGENT TREATMENT IN THE EMERGENCY DEPARTMENT. FURTHER EVALUATION AND TREATMENT OF YOUR CONDITION CAN WAIT UNTIL YOU ARE SEEN IN YOUR DOCTORS OFFICE WITHIN THE NEXT 1-2 DAYS. IT IS YOUR RESPONSIBILITY TO MAKE AN APPOINTMENT FOR FOLOW-UP CARE. IF YOU HAVE A PRIMARY DOCTOR --you should call your primary doctor and schedule an appointment IF YOU DO NOT HAVE A PRIMARY DOCTOR YOU CAN CALL OUR PHYSICIAN REFERRAL HOTLINE AT IF YOU CAN NOT AFFORD TO SEE A PHYSICIAN YOU CAN CHOSE FROM THE FOLLOWING [facility] [address] [facility] [address] [facility] [address] [facility] [address] [facility] [address] [facility]. [facility] [address] [facility]. [facility] YOU HAVE RECEIVED A MEDICAL SCREENING EXAM AND THE RESULTS INDICATE THAT YOU DO NOT HAVE A CONDITION THAT REQUIRES URGENT TREATMENT IN THE EMERGENCY DEPARTMENT. FURTHER EVALUATION AND TREATMENT OF YOUR CONDITION CAN WAIT UNTIL YOU ARE SEEN IN YOUR DOCTORS OFFICE WITHIN THE NEXT 1-2 DAYS. IT IS YOUR RESPONSIBILITY TO MAKE AN APPOINTMENT FOR FOLOW-UP CARE. IF YOU HAVE A PRIMARY DOCTOR --you should call your primary doctor and schedule and appointment IF YOU DO NOT HAVE A PRIMARY DOCTOR YOU CAN CALL OUR PHYSICIAN REFERRAL HOTLINE AT . IF YOU CAN NOT AFFORD TO SEE A PHYSICIAN YOU CAN CHOSE FROM THE FOLLOWING COUNTS INCLUDE 234 BEDS AT THE [facility] INSTITUTIONS: [facility] [address] [place] [address] [facility] [address] [place] [address] [facility] [address] [place] [address] Additional Instructions: Call your primary care doctor TOMORROW for an appointment during the next 1-2 days.See the doctor sooner or return here if your condition worsens before your appointment time. RUTH BRAGA PA-C Dec 14, 2018 08:08
== END 2018-12-14 08:21 | disposition home or self-care (01) ==
LOC: FTE 06:29
DX: L02.215 Cutaneous abscess of perineum (principal); I12.0 Hypertensive chronic kidney disease with stage 5 chronic kidney disease or end stage renal disease; N18.6 End stage renal disease; Z99.2 Dependence on renal dialysis